=== PATIENT | male | born 1955 | race Two or more races ===

== ENCOUNTER → 2017-09-11 | Outpatient (CLI) | payer MEDICAID ==
[~2017-09-11] VITALS: Ht 175.3 cm; Wt 111.1 kg
[~2017-09-11] MED LIST: ADENOSINE 90 MG/30 ML INJ IV ONE; ADENOSINE 93 MG in GIVE UN-DILUTED 0 ML IV ONE; ALPR0.5T7 PO; ASPI-498 OR; CLOP75TA28 PO; FENO160T8 PO; LISI-646 PO; LOVA20TA4 PO; MET50T GT
[2017-09-11 12:41] LABS: Urine Blood Negative /uL (Negative); Urine Specific Gravity 1.021 (1.001-1.035)
[2017-09-11 12:46] LABS: Basophils # (auto) 0.1 uL; Eosinophils # (auto) 0.4 uL; Hematocrit 43.1 % (41.0-53.0); Hemoglobin 14.4 g/dL (13.5-17.5); Lymphocytes # (auto) 1.9 uL; Lymphocytes % (auto) 18.6 % (10.0-50.0); Mean Corpuscular Hgb Conc. 33.3 g/dL (32.0-36.0); Mean Corpuscular Volume 81.2 fL (80.0-100.0); Monocytes # (auto) 0.6 uL; Monocytes % (auto) 5.9 % (0.0-12.0); Neutrophils % (auto) 70.5 % (37.0-80.0); Nucleated Red Blood Cells % 0.2 %; Platelet Count (auto) 212 10^3/uL (140-450); Red Blood Cells 5.31 10^6/uL (4.5-5.90)
[2017-09-11 12:55] LABS: Free T4 (Free Thyroxine) 1.24 ng/dL (0.89-1.76); Prostate Specific Antigen 1.05 ng/mL (0.0-4.0)
[2017-09-11 13:00] LABS: Albumin 3.4 g/dL (3.4-5.0); BUN/Creatinine Ratio 9.6; Bilirubin, Total 0.6 mg/dL (0.2-1.0); Calcium 9.4 mg/dL (8.5-10.1); Potassium 4.1 mmol/L (3.5-5.1)
== END | disposition home or self-care (01) ==
LOC: Rad HDHVI 08:03
PROVIDERS: ATTEND Internal Medicine Cardiovascular Disease
DX: E78.00 Pure hypercholesterolemia, unspecified (principal); D64.9 Anemia, unspecified; I10 Essential (primary) hypertension; E11.9 Type 2 diabetes mellitus without complications; R94.31 Abnormal electrocardiogram [ECG] [EKG]; E03.9 Hypothyroidism, unspecified; E55.9 Vitamin D deficiency, unspecified; R53.81 Other malaise; R97.20 Elevated prostate specific antigen [PSA]; D51.9 Vitamin B12 deficiency anemia, unspecified; N39.0 Urinary tract infection, site not specified; I21.9 Acute myocardial infarction, unspecified; R07.9 Chest pain, unspecified; E78.5 Hyperlipidemia, unspecified
CPT/HCPCS: 36415; 78452; 80053; 80061; 81003; 82306; 82607; 83036; 84153; 84403; 84439; 84443; 85025; 93005; 96374; 96375; A9500; J0153

== ENCOUNTER → 2018-01-02 | Outpatient (CLI) | payer MEDICAID ==
[~2018-01-02] MED LIST changes: -ADENOSINE 90 MG/30 ML INJ IV ONE; -ADENOSINE 93 MG in GIVE UN-DILUTED 0 ML IV ONE
== END | disposition home or self-care (01) ==
LOC: Rad HDHVI 13:56
PROVIDERS: ATTEND Internal Medicine
DX: I10 Essential (primary) hypertension (principal); I25.10 Atherosclerotic heart disease of native coronary artery without angina pectoris; I49.3 Ventricular premature depolarization; E78.5 Hyperlipidemia, unspecified; E03.9 Hypothyroidism, unspecified; E78.00 Pure hypercholesterolemia, unspecified; E11.9 Type 2 diabetes mellitus without complications; F41.9 Anxiety disorder, unspecified; Z79.899 Other long term (current) drug therapy
CPT/HCPCS: 93306

== ENCOUNTER 2018-03-24 14:23 | Emergency (ER) | payer MEDICAID ==
[~2018-03-24] VITALS: Ht 175.3 cm; Wt 108.9 kg
[2018-03-24 15:10] LABS: Basophils # (auto) 0.1 uL; Hemoglobin 14.4 g/dL (13.5-17.5); Neutrophils # (auto) 7.3 uL; White Blood Cell 11.1 10^3/uL (4.4-10.8)
[2018-03-24 15:12] LABS: Basophils % (auto) 1.2 % (0.0-2.0); Eosinophils # (auto) 0.8 uL; Eosinophils % (auto) 7.2 % (0.0-7.0); Hematocrit 42.6 % (41.0-53.0); Lymphocytes # (auto) 2.3 uL; Lymphocytes % (auto) 20.5 % (10.0-50.0); Mean Corpuscular Hemoglobin 26.9 pg (28.0-32.0); Mean Corpuscular Hgb Conc. 33.8 g/dL (32.0-36.0); Mean Corpuscular Volume 79.4 fL (80.0-100.0); Monocytes # (auto) 0.6 uL; Monocytes % (auto) 5.7 % (0.0-12.0); Neutrophils % (auto) 65.4 % (37.0-80.0); Platelet Count (auto) 197 10^3/uL (140-450); Red Blood Cells 5.36 10^6/uL (4.5-5.90); Red Cell Distribution Width 15.3 % (11.8-14.3)
[2018-03-24 15:26] LABS: INR 0.99 (0.9-1.15); Prothrombin Time 10.6 sec (9.27-12.13)
[2018-03-24 15:41] LABS: Alanine Aminotransferase 38 U/L (16-61); Albumin 3.4 g/dL (3.4-5.0); Alkaline Phosphatase 80 U/L (45-117); Anion Gap 3 (5-15); Aspartate Aminotransferase 16 U/L (15-37); BUN/Creatinine Ratio 10.8; Bilirubin, Total 0.4 mg/dL (0.2-1.0); Blood Urea Nitrogen 10 mg/dL (7-18); Calcium 8.8 mg/dL (8.5-10.1); Carbon Dioxide 26 mmol/L (21-32); Chloride 110 mmol/L (98-107); GFR African American 107 mL/min; GFR Non-African American 88 mL/min; Glucose 83 mg/dL (74-106); Magnesium 2.2 mg/dL (1.6-2.6); Potassium 3.6 mmol/L (3.5-5.1); Sodium 139 mmol/L (136-145); Total Protein 7.3 g/dL (6.4-8.2)
[2018-03-24] MEDS ORDERED: MORPHINE SULF INJ 2 MG/ML SYRINGE 1ML IV ONE (19:00)
[2018-03-24] MEDS ORDERED: ONDANSETRON HCL 4 MG/2 ML VIAL IV ONE (19:00)
[2018-03-24 19:52] VITALS: BP 122/73
[2018-03-24] MEDS ORDERED: MORPHINE SULF INJ 2 MG/ML SYRINGE 1ML IV PRN (21:15)
[2018-03-24] MEDS ORDERED: HYDROcodone-ACET 5/325MG TAB PO PRN (21:15)
[2018-03-24] MEDS ORDERED: ONDANSETRON HCL 4 MG/2 ML VIAL IV PRN (21:15)
[2018-03-24] MEDS ORDERED: NITROGLYCERIN 0.4 MG SL TAB SL PRN (21:15)
[2018-03-24] MEDS ORDERED: ACETAMINOPHEN 325 MG TAB PO PRN (21:15)
[2018-03-24] MEDS ORDERED: TEMAZEPAM 15 MG CAP PO PRN (21:15)
[2018-03-24] MEDS ORDERED: PRAVASTATIN SODIUM 20 MG TAB PO SCH (22:00)
[2018-03-24] MEDS ORDERED: FAMOTIDINE 20 MG TAB PO SCH (22:00)
[2018-03-25] MEDS ORDERED: ASPirin 81 mg TAB PO SCH (10:00)
[2018-03-25] MEDS ORDERED: METOPROLOL SUCCINATE XL 50 MG TAB PO SCH (10:00)
[2018-03-25] MEDS ORDERED: CLOPIDOGREL BISULFATE 75 MG TAB PO SCH (10:00)
[2018-03-25] MEDS ORDERED: ENOXAPARIN SOD 40 MG/0.4 ML SYRINGE SC SCH (10:00)
[2018-03-25] MEDS ORDERED: LISINOPRIL 20 MG TAB PO SCH (10:00)
== END 2018-03-24 21:21 | disposition left against medical advice (07) ==
LOC: ER 14:30
DX: R07.9 Chest pain, unspecified (principal); M25.511 Pain in right shoulder; I25.810 Atherosclerosis of coronary artery bypass graft(s) without angina pectoris; E78.5 Hyperlipidemia, unspecified; I10 Essential (primary) hypertension; I25.2 Old myocardial infarction; Z79.82 Long term (current) use of aspirin
CPT/HCPCS: 36415; 71046; 73030; 80053; 83735; 84484; 85025; 85610; 85730; 93005; 96374; 96375; 99285; J2270; J2405

== ENCOUNTER → 2018-08-27 | Outpatient (CLI) | payer MEDICAID ==
[~2018-08-27] MED LIST changes: +ALB5IS NEB; +ALBUAER3 IN; +ASPI1TAB59 PO; +ATOR1TAB PO; +CHOL20007 OR; +FLU220IH INH; +LURA80TA PO; -MET50T GT; +MET50T PO; +METF-370 PO; +NITR0.4S29 SL; +NYS15TP TOP; +OMEP20TA PO; +SERT-274 PO; +TEMA30CA PO; +TRAM50TA2 PO
[2018-08-27 11:50] VITALS: BP 120/70
[2018-08-27 12:10] VITALS: BP 125/71
--- NOTE | 2018-08-27 12:10 | NUR ---
Pre-Op Discharge Summary: See e-MAR for any medications given for this visit. Pre-op orders received and carried out per MD of EKG, LABS and chest xrays. Patient given a copy of EKG with instructions to go to [facility] out patient for further follow up care.
[2018-08-27 16:10] LABS: BUN/Creatinine Ratio 8.7; Potassium 3.9 mmol/L (3.5-5.1)
[2018-08-27 16:26] LABS: Basophils # (auto) 0.1 uL; Mean Corpuscular Volume 80.2 fL (80.0-100.0); Monocytes # (auto) 0.6 uL; White Blood Cell 11.4 10^3/uL (4.4-10.8)
[2018-08-27 16:28] LABS: Basophils % (auto) 0.9 % (0.0-2.0); Eosinophils # (auto) 0.4 uL; Eosinophils % (auto) 3.6 % (0.0-7.0); Hematocrit 45.4 % (41.0-53.0); Hemoglobin 14.8 g/dL (13.5-17.5); Lymphocytes # (auto) 2.3 uL; Lymphocytes % (auto) 20.1 % (10.0-50.0); Mean Corpuscular Hemoglobin 26.1 pg (28.0-32.0); Mean Corpuscular Hgb Conc. 32.5 g/dL (32.0-36.0); Monocytes % (auto) 5.3 % (0.0-12.0); Neutrophils % (auto) 70.1 % (37.0-80.0); Platelet Count (auto) 202 10^3/uL (140-450); Red Blood Cells 5.66 10^6/uL (4.5-5.90); Red Cell Distribution Width 14.9 % (11.8-14.3)
[2018-08-27 16:33] LABS: INR 1.04 (0.9-1.15); Partial Thromboplastin Time 27.3 sec (23.78-33.04); Prothrombin Time 11.1 sec (9.27-12.13)
== END | disposition home or self-care (01) ==
LOC: Rad HDHVI 10:37
PROVIDERS: ATTEND Internal Medicine Cardiovascular Disease
DX: Z01.818 Encounter for other preprocedural examination (principal); I35.8 Other nonrheumatic aortic valve disorders; D64.9 Anemia, unspecified; R79.1 Abnormal coagulation profile; I10 Essential (primary) hypertension; I20.9 Angina pectoris, unspecified
CPT/HCPCS: 36415; 80048; 85025; 85610; 85730; 93005; 93306; G0463

== ENCOUNTER 2018-08-31 09:24 | Inpatient (IN) | payer MEDICAID | END 2018-09-01 14:28 | disposition home or self-care (01) | LOC: CATH 09:24 → TELE-CENTR 18:11 ==

== ENCOUNTER → 2020-03-26 | Outpatient (CLI) | payer OTHER, MEDICAID ==
[~2020-03-26] MED LIST changes: -ASPI-498 OR; -FENO160T8 PO; -LISI-646 PO; -LOVA20TA4 PO
== END | disposition home or self-care (01) ==
LOC: Rad HDHVI 07:59
PROVIDERS: ATTEND Internal Medicine
DX: I08.2 Rheumatic disorders of both aortic and tricuspid valves (principal); I48.91 Unspecified atrial fibrillation; E11.9 Type 2 diabetes mellitus without complications; E78.5 Hyperlipidemia, unspecified; R06.02 Shortness of breath; R55 Syncope and collapse
CPT/HCPCS: 93306

== ENCOUNTER → 2020-04-07 | Outpatient (CLI) | payer OTHER, MEDICAID ==
[~2020-04-07] VITALS: Ht 175.3 cm; Wt 97.5 kg
[~2020-04-07] MED LIST changes: +ADENOSINE 82 MG in GIVE UN-DILUTED 0 ML IV ONE; +ADENOSINE 90 MG/30 ML INJ IV ONE
== END | disposition home or self-care (01) ==
LOC: Rad HDHVI 07:49
PROVIDERS: ATTEND Internal Medicine
DX: I25.10 Atherosclerotic heart disease of native coronary artery without angina pectoris (principal); I10 Essential (primary) hypertension; I25.2 Old myocardial infarction; E11.9 Type 2 diabetes mellitus without complications; E78.5 Hyperlipidemia, unspecified; R07.89 Other chest pain; R00.2 Palpitations; Z95.5 Presence of coronary angioplasty implant and graft; Z82.49 Family history of ischemic heart disease and other diseases of the circulatory system
CPT/HCPCS: 78452; 93005; 96374; 96375; A9500; J0153

== ENCOUNTER → 2021-09-08 | Outpatient (CLI) | payer MEDICARE, MEDICAID ==
[~2021-09-08] MED LIST changes: -ADENOSINE 82 MG in GIVE UN-DILUTED 0 ML IV ONE; -ADENOSINE 90 MG/30 ML INJ IV ONE; +ATOR-47 PO; -ATOR1TAB PO; -SERT-274 PO; +SERT50TA19 PO
== END | disposition home or self-care (01) ==
LOC: Rad HDHVI 11:05
PROVIDERS: ATTEND Internal Medicine
DX: I35.8 Other nonrheumatic aortic valve disorders (principal); I48.91 Unspecified atrial fibrillation
CPT/HCPCS: 93306

== ENCOUNTER → 2021-09-15 | Outpatient (CLI) | payer MEDICARE, MEDICAID | END | disposition home or self-care (01) | LOC: Rad HDHVI 12:44 | PROVIDERS: ATTEND Internal Medicine | DX: I65.22 Occlusion and stenosis of left carotid artery (principal); I25.10 Atherosclerotic heart disease of native coronary artery without angina pectoris; I10 Essential (primary) hypertension | CPT/HCPCS: 93880 ==

== ENCOUNTER → 2021-09-23 | Outpatient (CLI) | payer MEDICARE, MEDICAID ==
[~2021-09-23] VITALS: Ht 175.3 cm; Wt 99.8 kg
[~2021-09-23] MED LIST changes: +ADENOSINE 84 MG in GIVE UN-DILUTED 0 ML IV ONE; +ADENOSINE 90 MG/30 ML INJ IV ONE
== END | disposition home or self-care (01) ==
LOC: Rad HDHVI 08:00
PROVIDERS: ATTEND Internal Medicine
DX: I25.10 Atherosclerotic heart disease of native coronary artery without angina pectoris (principal); I42.0 Dilated cardiomyopathy; I10 Essential (primary) hypertension
CPT/HCPCS: 78452; 93005; 96374; 96375; A9500; J0153

== ENCOUNTER → 2022-03-07 | Outpatient (CLI) | payer MEDICARE, MEDICAID ==
[~2022-03-07] MED LIST changes: -ADENOSINE 84 MG in GIVE UN-DILUTED 0 ML IV ONE; -ADENOSINE 90 MG/30 ML INJ IV ONE; +APIX5TAB PO; +ASPI1TAB20 PO; +FERR-20 PO; +FLEC100T PO; +GLUC1TES VI; +IBUP200T2 PO; +LIDO5DIS21 TOP; +LISI20TA28 PO; +OMEG100078 PO; +SITA50TA PO; +TAM04C PO
[2022-03-07 10:00] VITALS: BP 128/74
[2022-03-07 10:36] VITALS: BP 125/75
[2022-03-07 17:09] LABS: Basophils # (auto) 0.1 10 ^3/uL (0-0.2); Hematocrit 43.1 % (41.0-53.0); Hemoglobin 13.7 g/dL (13.5-17.5); Lymphocytes # (auto) 1.9 10 ^3/uL (0.4-5.4); Mean Corpuscular Hemoglobin 26.4 pg (28.0-32.0); Monocytes # (auto) 0.7 10 ^3/uL (0-1.3)
[2022-03-07 17:15] LABS: Basophils % (auto) 0.9 % (0.0-2.0); Eosinophils # (auto) 0.4 10 ^3/uL (0-0.8); Eosinophils % (auto) 3.4 % (0.0-7.0); Lymphocytes % (auto) 17.7 % (10.0-50.0); Mean Corpuscular Hgb Conc. 31.8 g/dL (32.0-36.0); Mean Corpuscular Volume 82.9 fL (80.0-100.0); Monocytes % (auto) 5.9 % (0.0-12.0); Neutrophils # (auto) 7.9 10 ^3/uL (1.6-8.6); Neutrophils % (auto) 72.1 % (37.0-80.0); Nucleated Red Blood Cells % 0.2 %; Red Cell Distribution Width 14.5 % (11.8-14.3)
[2022-03-07 17:16] LABS: Potassium 4.4 mmol/L (3.5-5.1)
[2022-03-07 17:19] LABS: BUN/Creatinine Ratio 9.3; Calcium 9.3 mg/dL (8.5-10.1)
[2022-03-07 17:59] LABS: INR 0.98 (0.9-1.15); Partial Thromboplastin Time 30.1 sec (24.6-33.4)
== END | disposition home or self-care (01) ==
LOC: Rad HDHVI 09:49
PROVIDERS: ATTEND Internal Medicine
DX: I25.5 Ischemic cardiomyopathy (principal); I51.7 Cardiomegaly; I42.9 Cardiomyopathy, unspecified; R79.1 Abnormal coagulation profile; I10 Essential (primary) hypertension; Z01.812 Encounter for preprocedural laboratory examination
CPT/HCPCS: 36415; 71046; 80048; 85025; 85610; 85730; 93005; G0463

== ENCOUNTER 2022-03-09 09:12 | Day surgery (SDC) | payer MEDICARE, MEDICAID ==
[2022-03-09] VITALS (10 sets, daily range): BP systolic 104–115; BP diastolic 60–76
[~2022-03-09] VITALS: Ht 175.3 cm; Wt 100.7 kg
[~2022-03-09 09:12] MED LIST changes: -ALB5IS NEB; -ALPR0.5T7 PO; -ASPI1TAB59 PO; -FLU220IH INH; -LURA80TA PO; -SERT50TA19 PO
[2022-03-09] MEDS ORDERED: ANGIOMAX 250 MG VIAL IV ONE (10:24)
[2022-03-09] MEDS ORDERED: HEPARIN SODIUM (PORCINE) 5000 UNITS/ML 1ML VIAL ONE (10:25)
[2022-03-09] MEDS ORDERED: SODIUM CHL 0.9% 50 ML ONE (10:25)
[2022-03-09] MEDS ORDERED: MIDAZOLAM HCL 2MG/2ML 2ml VIAL (1mg/ml) ONE (10:25)
[2022-03-09] MEDS ORDERED: fentaNYL CITRATE 100 MCG/2 ML VL ONE (10:25)
[2022-03-09] MEDS ORDERED: VERAPAMIL 2.5MG/ML INJ 2ML VIAL IV ONE (10:25)
[2022-03-09] MEDS ORDERED: IODIXANOL 320MG/ML 100ML BTL IV ONE (10:28)
[2022-03-09] MEDS ORDERED: LIDOCAINE 2%HCL (LOCAL ANESTH.) INJ 10ml MDV ONE (10:29)
[2022-03-09] MEDS ORDERED: CLOPIDOGREL 300 MG TAB ONE (11:09)
== END 2022-03-09 14:29 | disposition home or self-care (01) ==
LOC: CATH 09:12
PROVIDERS: ATTEND Internal Medicine
DX: I25.10 Atherosclerotic heart disease of native coronary artery without angina pectoris (principal); I10 Essential (primary) hypertension; E78.5 Hyperlipidemia, unspecified; I25.2 Old myocardial infarction; J45.909 Unspecified asthma, uncomplicated; E11.9 Type 2 diabetes mellitus without complications; F41.9 Anxiety disorder, unspecified; F32.A Depression, unspecified; Z79.02 Long term (current) use of antithrombotics/antiplatelets; Z82.49 Family history of ischemic heart disease and other diseases of the circulatory system; Z79.82 Long term (current) use of aspirin; Z87.891 Personal history of nicotine dependence; Z20.822 Contact with and (suspected) exposure to COVID-19
CPT/HCPCS: 93458; C1725; C1769; C1874; C1887; C1894; C9600; J0583; J1644; J2001; J2250; J3010; J7030; Q9967; U0003; 99152; 99153

== ENCOUNTER → 2022-04-19 | Outpatient (CLI) | payer MEDICARE, MEDICAID ==
[2022-04-19 12:30] LABS: Urine Blood Negative /uL (Negative); Urine Specific Gravity 1.012 (1.001-1.035)
[2022-04-19 12:34] LABS: Basophils # (auto) 0.1 10 ^3/uL (0-0.2); Basophils % (auto) 0.9 % (0.0-2.0); Eosinophils # (auto) 0.5 10 ^3/uL (0-0.8); Eosinophils % (auto) 5.5 % (0.0-7.0); Hematocrit 42.9 % (41.0-53.0); Hemoglobin 14.1 g/dL (13.5-17.5); Lymphocytes # (auto) 2.2 10 ^3/uL (0.4-5.4); Lymphocytes % (auto) 22.6 % (10.0-50.0); Mean Corpuscular Hemoglobin 26.8 pg (28.0-32.0); Mean Corpuscular Hgb Conc. 32.8 g/dL (32.0-36.0); Mean Corpuscular Volume 81.9 fL (80.0-100.0); Monocytes # (auto) 0.7 10 ^3/uL (0-1.3); Monocytes % (auto) 6.8 % (0.0-12.0); Neutrophils # (auto) 6.3 10 ^3/uL (1.6-8.6); Neutrophils % (auto) 64.2 % (37.0-80.0); Nucleated Red Blood Cells % 0.1 %; Red Blood Cells 5.24 10^6/uL (4.5-5.90); Red Cell Distribution Width 14.6 % (11.8-14.3); White Blood Cell 9.8 10^3/uL (4.4-10.8)
[2022-04-19 12:41] LABS: Albumin 3.4 g/dL (3.4-5.0); Calcium 9.2 mg/dL (8.5-10.1); Potassium 4.2 mmol/L (3.5-5.1)
[2022-04-19 12:46] LABS: BUN/Creatinine Ratio 12.1; Bilirubin, Total 0.3 mg/dL (0.2-1.0); Total Protein 7.1 g/dL (6.4-8.2)
[2022-04-19 12:56] LABS: Free T4 (Free Thyroxine) 1.18 ng/dL (0.89-1.76); Prostate Specific Antigen 0.78 ng/mL (0.0-4.0)
== END | disposition home or self-care (01) ==
LOC: LAB 10:36
PROVIDERS: ATTEND Internal Medicine
DX: C61 Malignant neoplasm of prostate (principal); I25.10 Atherosclerotic heart disease of native coronary artery without angina pectoris; E55.9 Vitamin D deficiency, unspecified; D51.3 Other dietary vitamin B12 deficiency anemia; D64.9 Anemia, unspecified; E11.9 Type 2 diabetes mellitus without complications; I10 Essential (primary) hypertension; R00.2 Palpitations; R53.1 Weakness; R30.0 Dysuria
CPT/HCPCS: 36415; 80053; 80061; 81003; 82306; 82607; 83036; 84153; 84403; 84439; 84443; 85025

== ENCOUNTER → 2022-04-28 | Outpatient (CLI) | payer MEDICARE, MEDICAID | END | disposition home or self-care (01) | LOC: LAB 10:31 | PROVIDERS: ATTEND Internal Medicine | DX: E11.9 Type 2 diabetes mellitus without complications (principal) | CPT/HCPCS: 82043 ==

== ENCOUNTER → 2022-04-29 | Outpatient (CLI) | payer MEDICARE, MEDICAID | END | disposition home or self-care (01) | LOC: Rad HDHVI 11:02 | PROVIDERS: ATTEND Internal Medicine | DX: I08.1 Rheumatic disorders of both mitral and tricuspid valves (principal); R06.02 Shortness of breath; R42 Dizziness and giddiness | CPT/HCPCS: 93306 ==

== ENCOUNTER → 2022-12-28 | Outpatient (CLI) | payer MEDICARE, MEDICAID ==
[~2022-12-28] VITALS: Ht 175.3 cm; Wt 99.8 kg
[~2022-12-28] MED LIST changes: +ADENOSINE 84 MG in GIVE UN-DILUTED 0 ML IV ONE; +ADENOSINE 90 MG/30 ML INJ IV ONE; -FERR-20 PO; +FERR325T24 PO; -LISI20TA28 PO; +LISI20TA56 PO; +OMEG-20 PO; -OMEG100078 PO; -TAM04C PO; +TAMS-35 PO
== END | disposition home or self-care (01) ==
LOC: Rad HDHVI 09:55
PROVIDERS: ATTEND Internal Medicine Cardiovascular Disease
DX: I25.10 Atherosclerotic heart disease of native coronary artery without angina pectoris (principal); I25.5 Ischemic cardiomyopathy; E78.5 Hyperlipidemia, unspecified; I63.9 Cerebral infarction, unspecified; R07.9 Chest pain, unspecified; R94.31 Abnormal electrocardiogram [ECG] [EKG]; I11.0 Hypertensive heart disease with heart failure; I50.43 Acute on chronic combined systolic (congestive) and diastolic (congestive) heart failure; I25.2 Old myocardial infarction; E11.65 Type 2 diabetes mellitus with hyperglycemia; I48.91 Unspecified atrial fibrillation; Z82.49 Family history of ischemic heart disease and other diseases of the circulatory system; Z79.82 Long term (current) use of aspirin; Z79.84 Long term (current) use of oral hypoglycemic drugs; Z79.899 Other long term (current) drug therapy
CPT/HCPCS: 78452; 93005; 96374; 96375; A9500; J0153

== ENCOUNTER → 2023-03-06 | Outpatient (CLI) | payer MEDICARE, MEDICAID ==
[~2023-03-06] MED LIST changes: -ADENOSINE 84 MG in GIVE UN-DILUTED 0 ML IV ONE; -ADENOSINE 90 MG/30 ML INJ IV ONE; +AMIT100T75 PO; +DIGO0.12 PO; +GEMF-66 PO
[2023-03-06 10:10] VITALS: BP 127/69; PULSE 81; RESP 18; O2SAT 98
[2023-03-06 10:25] VITALS: BP 124/73; PULSE 94; RESP 18; O2SAT 98
== END | disposition home or self-care (01) ==
LOC: Rad HDHVI 09:54
PROVIDERS: ATTEND Internal Medicine Cardiovascular Disease
DX: Z01.818 Encounter for other preprocedural examination (principal); I45.10 Unspecified right bundle-branch block; R94.31 Abnormal electrocardiogram [ECG] [EKG]; I50.43 Acute on chronic combined systolic (congestive) and diastolic (congestive) heart failure; R06.02 Shortness of breath; R60.9 Edema, unspecified
CPT/HCPCS: 71046; 93005; G0463

== ENCOUNTER 2023-03-07 11:17 | Day surgery (SDC) | payer MEDICARE, MEDICAID ==
[2023-03-06 11:31] LABS: Basophils # (auto) 0.1 10 ^3/uL (0-0.2); Basophils % (auto) 0.9 % (0.0-2.0); Eosinophils # (auto) 0.3 10 ^3/uL (0-0.8); Eosinophils % (auto) 2.8 % (0.0-7.0); Hematocrit 43.5 % (41.0-53.0); Hemoglobin 14.3 g/dL (13.5-17.5); Lymphocytes # (auto) 1.6 10 ^3/uL (0.4-5.4); Lymphocytes % (auto) 17.9 % (10.0-50.0); Mean Corpuscular Hemoglobin 27.2 pg (28.0-32.0); Mean Corpuscular Hgb Conc. 32.8 g/dL (32.0-36.0); Mean Corpuscular Volume 82.8 fL (80.0-100.0); Monocytes # (auto) 0.9 10 ^3/uL (0-1.3); Monocytes % (auto) 9.5 % (0.0-12.0); Neutrophils # (auto) 6.2 10 ^3/uL (1.6-8.6); Neutrophils % (auto) 68.9 % (37.0-80.0); Nucleated Red Blood Cells % 0.1 %; Red Blood Cells 5.25 10^6/uL (4.5-5.90); Red Cell Distribution Width 14.7 % (11.8-14.3)
[2023-03-06 11:48] LABS: INR 1.08 (0.9-1.15); Partial Thromboplastin Time 26.8 SEC (24.5-34.5); Prothrombin Time 11.3 sec (9.3-11.8)
[2023-03-06 12:26] LABS: Calcium 9.6 mg/dL (8.5-10.1); Potassium 4.2 mmol/L (3.5-5.1)
[2023-03-06 12:28] LABS: BUN/Creatinine Ratio 8.9 (10.0-20.0)
[~2023-03-07] VITALS: Ht 175.3 cm; Wt 98.9 kg
[~2023-03-07 11:17] MED LIST changes: -ASPI1TAB20 PO; -FERR325T24 PO; -FLEC100T PO; -LISI20TA56 PO
[2023-03-07] MEDS ORDERED: VANCOMYCIN 1GM/250ML 250 ML IV ONE (12:00)
[2023-03-07] MEDS ORDERED: MIDAZOLAM HCL 2MG/2ML 2ml VIAL (1mg/ml) ONE (12:34)
[2023-03-07] MEDS ORDERED: VANCOMYCIN HCL 1000 MG VL ONE (12:34)
[2023-03-07] MEDS ORDERED: LIDOCAINE 2%HCL (LOCAL ANESTH.) INJ 20ML MDV ONE ×2 (12:34→12:47)
[2023-03-07] MEDS ORDERED: fentaNYL CITRATE 100 MCG/2 ML VL ONE (12:34)
[2023-03-07] MEDS ORDERED: IODIXANOL 320MG/ML 100ML BTL IV ONE (12:36)
[2023-03-07 14:28] VITALS: BP 128/80; PULSE 79; RESP 12; O2SAT 98
[2023-03-07 14:44] VITALS: BP 131/80; PULSE 73; RESP 17; O2SAT 96
[2023-03-07 14:59] VITALS: BP 129/77; PULSE 74; RESP 18; O2SAT 98
[2023-03-07 15:14] VITALS: BP 136/79; PULSE 75; RESP 12; O2SAT 95
[2023-03-07 15:45] VITALS: BP 138/78; PULSE 81; RESP 16
[2023-03-07] MEDS ORDERED: FUROSEMIDE 40 MG/4 ML VIAL IV ONE (16:15)
[2023-03-07] MEDS ORDERED: POTASSIUM CHL 20 Meq TABLET PO ONE (16:15)
[2023-03-07 16:29] VITALS: BP 128/85; PULSE 85; RESP 16; O2SAT 99
== END 2023-03-07 17:00 | disposition home or self-care (01) ==
LOC: CATH 11:17
PROVIDERS: ATTEND Internal Medicine Cardiovascular Disease
DX: I11.0 Hypertensive heart disease with heart failure (principal); I50.22 Chronic systolic (congestive) heart failure; I25.5 Ischemic cardiomyopathy; I42.0 Dilated cardiomyopathy; R06.02 Shortness of breath; R07.89 Other chest pain; I49.5 Sick sinus syndrome; I25.2 Old myocardial infarction; E78.5 Hyperlipidemia, unspecified; E11.9 Type 2 diabetes mellitus without complications; E66.9 Obesity, unspecified; R42 Dizziness and giddiness
CPT/HCPCS: 33225; 33249; 71045; 93005; C1730; C1769; C1882; C1887; C1895; C1898; C1900; J2250; J3010; J3370; 36415; 80048; 85025; 85610; 85730; 99152; 99153; Q9967

== ENCOUNTER → 2023-03-08 | Outpatient (CLI) | payer MEDICARE, MEDICAID ==
[~2023-03-08] MED LIST changes: +ASPI1TAB20 PO; +FERR325T24 PO; +FLEC100T PO; +LISI20TA56 PO
== END | disposition home or self-care (01) ==
LOC: Rad HDHVI 09:40
PROVIDERS: ATTEND Internal Medicine Cardiovascular Disease
DX: Z48.89 Encounter for other specified surgical aftercare (principal); Z95.0 Presence of cardiac pacemaker
CPT/HCPCS: 71046

== ENCOUNTER → 2024-04-11 | Outpatient (CLI) | payer MEDICARE, MEDICAID ==
[~2024-04-11] MED LIST changes: -ASPI1TAB20 PO; -FERR325T24 PO; -FLEC100T PO; -LISI20TA56 PO; -NYS15TP TOP; +NYST-23 TOP
== END | disposition home or self-care (01) ==
LOC: Rad HDHVI 15:16
PROVIDERS: ATTEND Internal Medicine Cardiovascular Disease
DX: I11.0 Hypertensive heart disease with heart failure (principal); I50.23 Acute on chronic systolic (congestive) heart failure
CPT/HCPCS: 93306

== ENCOUNTER → 2024-04-15 | Outpatient (CLI) | payer MEDICARE, MEDICAID ==
[~2024-04-15] VITALS: Ht 175.3 cm; Wt 85.7 kg
[~2024-04-15] MED LIST changes: +ADENOSINE 72 MG in GIVE UN-DILUTED 0 ML IV ONE; +ADENOSINE 90 MG/30 ML INJ IV ONE
== END | disposition home or self-care (01) ==
LOC: Rad HDHVI 07:50
PROVIDERS: ATTEND Internal Medicine Cardiovascular Disease
DX: I11.0 Hypertensive heart disease with heart failure (principal); I50.23 Acute on chronic systolic (congestive) heart failure; I42.7 Cardiomyopathy due to drug and external agent; E78.00 Pure hypercholesterolemia, unspecified; E11.21 Type 2 diabetes mellitus with diabetic nephropathy; I25.2 Old myocardial infarction; Z95.0 Presence of cardiac pacemaker; Z82.49 Family history of ischemic heart disease and other diseases of the circulatory system
CPT/HCPCS: 78452; 93005; 96374; A9500; J0153; 96375

== ENCOUNTER → 2024-05-13 | Outpatient (CLI) | payer MEDICARE, MEDICAID ==
[~2024-05-13] MED LIST changes: -ADENOSINE 72 MG in GIVE UN-DILUTED 0 ML IV ONE; -ADENOSINE 90 MG/30 ML INJ IV ONE
== END | disposition home or self-care (01) ==
LOC: Rad HDHVI 11:57
PROVIDERS: ATTEND Internal Medicine Cardiovascular Disease
DX: M79.661 Pain in right lower leg (principal); M79.662 Pain in left lower leg
CPT/HCPCS: 93925

== ENCOUNTER 2024-11-12 21:05 | Inpatient (IN) | payer MEDICARE, MEDICAID ==
[~2024-11-12] VITALS: Ht 175.3 cm; Wt 94.5 kg
[2024-11-12 22:23] VITALS: PULSE 81; RESP 12; O2SAT 97
[2024-11-12 22:49] LABS: Basophils # (auto) 0.2 10 ^3/uL (0-0.2); Eosinophils # (auto) 0.6 10 ^3/uL (0-0.8); Hematocrit 44.6 % (41.0-53.0); Hemoglobin 15.2 g/dL (13.5-17.5); Lymphocytes # (auto) 2.4 10 ^3/uL (0.4-5.4); Mean Corpuscular Hemoglobin 28.2 pg (28.0-32.0); Mean Corpuscular Volume 82.8 fL (80.0-100.0); Monocytes # (auto) 1.2 10 ^3/uL (0-1.3); Monocytes % (auto) 7.9 % (0.0-12.0); Neutrophils # (auto) 10.6 10 ^3/uL (1.6-8.6); Neutrophils % (auto) 71.1 % (37.0-80.0); Nucleated Red Blood Cells % 0.1 %; Platelet Count (auto) 211 10^3/uL (140-450); Red Blood Cells 5.39 10^6/uL (4.5-5.90); Red Cell Distribution Width 14.5 % (11.8-14.3)
[2024-11-12 22:51] LABS: Chloride 106 mmol/L (98-107); Potassium 3.9 mmol/L (3.5-5.1); Sodium 138 mmol/L (136-145)
[2024-11-12 22:52] LABS: Anion Gap 5 (5-15); Carbon Dioxide 27 mmol/L (20-31)
[2024-11-12 22:53] LABS: Calcium 10.2 mg/dL (8.7-10.4)
[2024-11-12 22:58] LABS: BUN/Creatinine Ratio 8.9 (10.0-20.0)
--- NOTE | 2024-11-12 22:59 | ED.PDOC ---
History of Present Illness HPI Comments 69-year-old male CHER presents with a chief complaint of syncope. Patient states that he was working in the garage all day and had a syncopal episode. Denies hitting his head. Patient states that he fell on his chest and abdomen. Patient also states that he had already taken his sleeping medication, Temazepam, prior to his fall. BGL: 131. Patient does take blood thinners. patient also states that he has had diarrhea prior to the fall and had an episode of vomiting after the fall. Chief Complaint: Syncope Time Seen by MD: 22:22 Primary Care Provider: ETELVINA Reviewed Notes: Medications, Allergies Allergies: Coded Allergies: NO KNOWN ALLERGIES (Unverified , 03/06/23) Home Meds Reported Medications Digoxin (Digoxin) 125 Mcg Tab, 125 MCG PO DAILY, TAB 03/06/23 Amitriptyline HCl (Amitriptyline Hydrochlori) 100 Mg Tab, 100 MG PO DAILY, TAB 03/06/23 Gemfibrozil (Gemfibrozil) 600 Mg Tab, 600 MG PO DAILY for HIGH CHOLESTEROL, MG 03/06/23 Apixaban Base (ELIQUIS) 5 Mg Tab, 5 MG PO BID for S/P CARDIAC STENTS, TAB 03/07/22 Lidocaine (LIDODERM 5% TOPICAL PATCH) 1 Patch Ph, 1 PATCH TOP DAILY, #30 PATCH 1 Refill 03/07/22 Tamsulosin Hcl (Flomax) 0.4 Mg Cap, 0.4 MG PO DAILY for BPH, CAP 03/07/22 Sitagliptin Phosphate (Januvia) 50 Mg Tab, 2 TAB PO DAILY, #30 TAB 5 Refills 03/07/22 Ibuprofen (Ibuprofen) 200 Mg Tab, 200 MG PO Q4HPRN PRN for PAIN, TAB 03/07/22 [place]-3 Fatty Acids (FISH OIL) 1,000 Mg Cap, 4000 MG PO DAILY for SUPPLEMENT, CAP 03/07/22 Glucose Blood (Fora Gd50 Blood Glucose T) 1 Rachel Rachel, 1 RACHEL BID for BLOOD GLUCOSE, MISC 03/07/22 Atorvastatin Calcium (ATORVASTATIN CALCIUM) 80 Mg Tab, 1 TAB PO DAILY for HYPERLIPIDEMIA, #30 TAB 5 Refills 08/27/18 Metformin Hydrochloride (Metformin Hcl) 500 Mg Tab, 1000 MG PO IBID for 30 Days, MG 08/27/18 Nitroglycerin (Nitrostat) 0.4 Mg Sub, 0.4 MG SL PRN 08/27/18 Nystatin (Nystatin) 100,000 Unit/Gm Cre, TOP BID 08/27/18 Omeprazole (Gnp Omeprazole) 20 Mg Tab, 40 MG PO DAILY, TAB 08/27/18 Temazepam (Temazepam) 30 Mg Cap, 30 MG PO QHSP, CAP 08/27/18 Tramadol Hcl (Tramadol Hcl) 50 Mg Tab, 50 MG PO Q6HP PRN for MODERATE PAIN, MG 08/27/18 Albuterol Sulfate (VENTOLIN MDI) 90 Mcg Ih, 180 MCG IN Q4HP for 30 Days, MCG 08/27/18 Cholecalciferol (VITAMIN D3) 2,000 Unit Tab, 5000 UNIT OR DAILY, TAB 08/27/18 Metoprolol Tartrate (LOPRESSOR TABLET) 50 Mg Tb, 75 MG PO DAILY 01/01/14 Clopidogrel Bisulfate (Plavix) 75 Mg Tab, 75 MG PO DAILY, TAB 01/01/14 Information Source: Patient Mode of Arrival: EMS Severity: Moderate Timing: Hours Duration: Since onset 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, 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 Past Medical History PAST MEDICAL HISTORY: CAD, High Lipids, HTN, [place] Surgical History: PTCA Family History Family History: Unknown Social History Smoker: Non-Smoker Alcohol: Denies ETOH Use Drugs: Denies Drug Use Lives In: Home Constitutional: denies: chills, diaphoresis, fatigue, fever, malaise, sweats, weakness, others EENTM: denies: blurred vision, double vision, ear bleeding, ear discharge, ear drainage, ear pain, ear ringing, eye pain, eye redness, hearing loss, mouth pain, mouth swelling, nasal discharge, nose bleeding, nose congestion, nose pain, photophobia, tearing, throat pain, throat swelling, voice changes, others Respiratory: denies: cough, hemoptysis, orthopnea, SOB at rest, shortness of breath, SOB with excertion, stridor, wheezing, others Cardiovascular: reports: syncope; denies: chest pain, dizzy spells, diaphoresis, Dyspnea on exertion, edema, irregular heart beat, left arm pain, lightheadedness, palpitations, PND, others Gastrointestinal: denies: abdomen distended, abdominal pain, blood streaked bowels, constipated, diarrhea, dysphagia, difficulty swallowing, hematemesis, melena, nausea, poor appetite, poor fluid intake, rectal bleeding, rectal pain, vomiting, others Genitourinary: denies: burning, dysuria, flank pain, frequency, hematuria, incontinence, penile discharge, penile sore, pain, testicle pain, testicle swelling, urgency, others Neurological: denies: dizziness, fainting, headache, left sided numbness, left sided weakness, numbness, paresthesia, pre-existing deficit, right sided numbness, right sided weakness, seizure, speech problems, tingling, tremors, weakness, others Musculoskeletal: denies: back pain, gout, joint pain, joint swelling, muscle pain, muscle stiffness, neck pain, others Integumetry: denies: bruises, change in color, change in hair/nails, dryness, laceration, lesions, lumps, rash, wounds, others Allergic/Immunocompromised: denies: Difficulty Healing, Frequent Infections, Hives, Itching, others Hematologic/Lymphatic: denies: anemia, blood clots, easy bleeding, easy bruising, swollen glands, others Endocrine: denies: excessive hunger, excessive sweating, excessive thirst, excessive urination, flushing, intolerance to cold, intolerance to heat, unexplained weight gain, unexplained weight loss, others Psychiatric: denies: anxiety, bipolar disorder, depression, hopeless, panic disorder, schizophrenia, sleepless, suicidal, others All Other Systems: Reviewed and Negative Physical Exam General Appearance: No Apparent Distress, Normal HEENT: Normal ENT Inspection, Pharynx Normal, TMs Normal Neck: Full Range of Motion, Non-Tender, Normal, Normal Inspection Respiratory: Chest Non-Tender, Lungs Clear, No Accessory Muscle Use, No Respiratory Distress, Normal Breath Sounds Cardiovascular: No Edema, No JVD, No Murmur, No Gallop, Normal Peripheral Pulses, Regular Rate/Rhythm Breast Exam: Deferred Gastrointestinal: No Organomegaly, Non Tender, No Pulsatile Mass, Normal Bowel Sounds, Soft Genitalia: Deferred Pelvic: Deferred Rectal: Deferred Extremities: No calf tenderness, Normal capillary refill, Normal inspection, Normal range of motion, Non-tender, No pedal edema Musculoskeletal : Apperance: Normal Neurologic: Alert, 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 Was a procedure done?: No Differential Dx Considerations may include: ACS, CVA, electrolyte abnormality, viral syndrome, cardiac arrhythmia X-Ray, Labs, Meds, VS Vital Signs Date Time Temp Pulse Resp B/P (MAP) Pulse Ox O2 Delivery O2 Flow Rate FiO2 11/12/24 22:23 81 12 97 Room Air* 0 21 11/12/24 22:23 98.1 81 12 99/51 (67) 97 98.1 11/12/24 21:19 97.9 91 18 117/59 (78) 98 97.9 11/12/24 21:11 84 Lab Test 11/12/24 23:19 11/12/24 22:32 Range/Units Troponin I High Sensitivity Pending 3 L </=54 ng/L White Blood Count 15.0 H 4.4-10.8 10^3/uL Red Blood Count 5.39 4.5-5.90 10^6/uL Hemoglobin 15.2 13.5-17.5 g/dL Hematocrit 44.6 41.0-53.0 % Mean Corpuscular Volume 82.8 80.0-100.0 fL Mean Corpuscular Hemoglobin 28.2 28.0-32.0 pg Mean Corpuscular Hemoglobin Concent 34.0 32.0-36.0 g/dL Red Cell Distribution Width 14.5 H 11.8-14.3 % Platelet Count 211 140-450 10^3/uL Mean Platelet Volume 10.3 6.9-10.8 fL Neutrophils (%) (Auto) 71.1 37.0-80.0 % Lymphocytes (%) (Auto) 16.0 10.0-50.0 % Monocytes (%) (Auto) 7.9 0.0-12.0 % Eosinophils (%) (Auto) 4.0 0.0-7.0 % Basophils (%) (Auto) 1.0 0.0-2.0 % Neutrophils # (Auto) 10.6 H 1.6-8.6 10 ^3/uL Lymphocytes # (Auto) 2.4 0.4-5.4 10 ^3/uL Monocytes # (Auto) 1.2 0-1.3 10 ^3/uL Eosinophils # (Auto) 0.6 0-0.8 10 ^3/uL Basophils # (Auto) 0.2 0-0.2 10 ^3/uL Nucleated Red Blood Cells 0.1 % Sodium Level 138 136-145 mmol/L Potassium Level 3.9 3.5-5.1 mmol/L Chloride Level 106 98-107 mmol/L Carbon Dioxide Level 27 20-31 mmol/L Anion Gap 5 5-15 Blood Urea Nitrogen 8 L 9-23 mg/dL Creatinine 0.90 0.700-1.30 mg/dL Glomerular Filtration Rate Calc 94 >90 mL/min BUN/Creatinine Ratio 8.9 L 10.0-20.0 Serum Glucose 130 H 74-106 mg/dL Calcium Level 10.2 8.7-10.4 mg/dL Time of 1ST Reevaluation: 22:52 Reevaluation 1ST: Unchanged Patient Education/Counseling: Diagnosis, Treatment Family Education/Counseling: No Family Present Departure 1 Departure Time of Disposition: 23:27 (Patient presented with syncope today and should be admitted. Data: 1. I ordered and reviewed the result of at least 3 labs including a CBC, BMP, and troponin. 2. I independently interpreted the following tests: EKG which shows a sinus arrhythmia and a chest x-ray which shows benign chest and a CT head which shows benign brain _.Risk:This patient has a high risk of morbidity due to further diagnostic testing or treatment and may suffer from an acute cardiac, neurologic, or infectious disorder. Rationale: Patient should be admitted to the hospital for further management.) Impression: Primary Impression: Syncope and collapse Additional Impression: Generalized weakness Disposition: ADMITTED INPATIENT Admit to: Med Surg Condition: Serious Critical Care Note Critical Care Time?: Yes Critical care comment: Syncope and collapse Authorized and Performed by: Emily Han MD Total critical care time: Approximately 39 minutes Due to a high probability of clinically significant, life threatening deterioration, the patient required my highest level of preparedness to intervene emergently and I personally spent this critical care time directly and personally managing the patient. This critical care time included obtaining a history; examining the patient; pulse oximetry; ordering and review of studies; arranging urgent treatment with development of a management plan; evaluation of patient's response to treatment; frequent reassessment; and, discussions with other providers. This critical care time was performed to assess and manage the high probability of imminent, life-threatening deterioration that could result in multi-organ failure. It was exclusive of separately billable procedures and treating other patients and teaching time. Please see my other sections and the rest of the note for further information on patient assessment and treatment. Stability Stability form required: No Heart Score Heart Score: Heart Score Response (Comments) Value History N/A 0 EKG N/A 0 Age N/A 0 Risk Factors N/A 0 Troponin N/A 0 Total 0 I personally scribed for EMILY HAN MD ([email or web address]) on 11/12/24 at 22:59. Electronically submitted by Osmany Barraza ([email or web address]). EMILY HAN MD Nov 12, 2024 22:59
--- NOTE | 2024-11-12 23:05 | DVH ---
CHEST RADIOGRAPH Indication: syncope Technique: Single frontal view of the chest was obtained COMPARISON: XY CHEST PORTABLE on DOS: 03/07/23 FINDINGS: Lines and Tubes: Left anterior chest wall cardiac pacing device. Lungs: Clear Pleura: No effusion. No pneumothorax. Cardiomediastinal contours: Unremarkable Bones: Unremarkable IMPRESSION: 1. No acute disease.
[2024-11-12 23:13] LABS: Blood Urea Nitrogen 8 mg/dL (9-23); Glucose 130 mg/dL (74-106)
--- NOTE | 2024-11-12 23:15 | DVH ---
EXAM: CT HEAD WITHOUT CONTRAST INDICATION: syncope TECHNIQUE: CT of the head without intravenous contrast. Radiation Dose : 1. Head: CT Dose: CTDI volume is 64.94 mGy. Dose-length product is 1040.73 mGy*cm The dose indicators for CT are the volume Computed Tomography (CT) Dose Index (CTDIvol) and the Dose Length Product (DLP), and are measured in units of mGy and mGy-cm, respectively. These indicators are not patient dose, but values generated from the CT scanner acquisition factors. The report includes radiation exposure data for exposures received during this examination. COMPARISON: None FINDINGS: There is no evidence of acute intracranial hemorrhage, extra-axial collection, mass effect, midline s hift, herniation or hydrocephalus. The ventricles, sulci and cisterns are age appropriate. The lopez-white differentiation is intact. Patchy periventricular and subcortical white matter hypoattenuation is nonspecific but may be related to small vessel ischemic disease. The visualized paranasal sinuses and mastoid air cells are clear. The surrounding soft tissues and osseous structures are unremarkable. IMPRESSION: 1. No acute intracranial abnormality. 2. Chronic sequelae of microvascular disease. Radiation optimization: All CT scans at this facility use at least one of these dose optimization jake hniques: automated exposure control mA and/or kV adjustment per patient size (includes targeted exam s where dose is matched to clinical indication) or iterative reconstruction.
[2024-11-12] MEDS ORDERED: NITROGLYCERIN 0.4 MG SL TAB SL PRN (23:45)
[2024-11-12] MEDS ORDERED: DOCUSATE SOD 100 MG CAP PO PRN (23:45)
[2024-11-12] MEDS ORDERED: MORPHINE SULFATE INJ 2 MG/ml SYRG IV PRN (23:45)
[2024-11-12] MEDS ORDERED: ACETAMINOPHEN 325 MG TAB PO PRN (23:45)
--- NOTE | 2024-11-12 23:45 | DVHHPRES ---
History of Present Illness Resident Creating Document: SYLVIA ALLEN History of Present Illness Leonidas Pino SR a 69-year-old male patient who presents to ED with chief complaint of denies generalized weakness, lightheadedness, diaphoresis, nausea and mechanical fall with no loss of consciousness with right elbow and chest trauma which happened today in the a.m.. Patient reports before episode started he was smoking cigars and he had low food and water intake today. 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 Patient also reports chills proximally two weeks ago. Denies head or cervical trauma, fever, palpitation, syncope, chest pain, dyspnea, vomiting, diarrhea, bleeding, recent travel, sick contacts and motor or sensory deficits. Past medical history: Hypertension, dyslipidemia, diabetes, CHF status post EMPLOYMENT OFFICE CLERK D (he has not been admitted for CHF exacerbation since placement of cardiac device), coronary artery disease with NE in 2003, required a total of three PCIs with total of 5 TOMI placed, non affiliated arrhythmia (probable atrial fibrillation) on apixaban, required ablation in 2022, COPD, asthma, obstructive sleep apnea indicating CPAP but the patient is nonadherent to treatment, bulging lumbar disc symptomatic by chronic back pain and peripheral neuropathy, GERD, hepatic steatosis BPH. Surgical history: Multiple PCIs (2003 with 1 TOMI, 2007 with 2 TOMI and 2014 with 2 TOMI), 02/2023 EMPLOYMENT OFFICE CLERK-D, Ablation 2022, carpal tunnel surgery Family history: Mother and father had heart disease Social history: Lives in [place] with (next of kin) and offsprings. He currently smokes six cigars a day, quit cigarette smoking in 2005 ( pack-year history of smoking). Ex ethanol abuse (on glass of Bacardi every done night) quit also in 2005. He occasionally drinks alcohol now. And occasionally smokes marijuana. Denies any other drug abuse Allergies: Denies Home medication: Plavix, aspirin, Eliquis, omeprazole, atorvastatin, gemfibrozil, temazepam. He does not take any diuretics. Patient seen and examined at bedside. He is complaining of chest pain which is exacerbated by respiration and superficial palpation. Ordered IV morphine Past Medical History Per HPI Past Surgical History Per HPI Family History Per HPI Past Social History Per HPI Review of Systems Review of Systems Per HPI Allergies: Coded Allergies: NO KNOWN ALLERGIES (Unverified , 03/06/23) Medications Current Medications Medications Dose Ordered Sig/Carl Route Start Time Stop Time Status Last Admin Dose Admin Docusate Sodium 100 mg BIDPRN PRN PO 11/12/24 23:45 UNV Acetaminophen 650 mg Q6HP PRN PO 11/12/24 23:45 UNV Ondansetron HCl 4 mg Q4HP PRN IV 11/12/24 23:45 UNV Morphine Sulfate 2 mg Q4HPRN PRN IV 11/12/24 23:45 UNV Enoxaparin Sodium 40 mg DAILY SC 11/13/24 10:00 UNV Nitroglycerin 0.4 mg Q5MINP PRN SL 11/12/24 23:45 UNV Morphine Sulfate 2 mg Q30M PRN IV 11/12/24 23:45 UNV Exam Vital Signs Vital Signs Date Time Temp Pulse Resp B/P (MAP) Pulse Ox O2 Delivery O2 Flow Rate FiO2 11/12/24 22:23 81 12 97 Room Air* 0 21 11/12/24 22:23 98.1 99/51 (67) 98.1 Exam Patient lying in bed, in no acute distress General: Lucid, afebrile, mucosae are dry Cardiovascular: Normal S1 and S2. No murmurs, gallops or rubs. Presents tenderness on superficial palpation of anterior chest wall Respiratory: Normal ventilation mechanics. Clear lung sounds on auscultation Abdomen: Soft, nontender, no organomegaly, normal bowel sounds MSK/skin: Mobilizes 4 limbs. Skin is dry and warm Neurological: Oriented in 3 spheres. No motor no sensitive deficits. Pupils are isocoric and reactive Labs/Xrays Labs Test 11/12/24 23:19 11/12/24 22:32 Range/Units White Blood Count 15.0 H 4.4-10.8 10^3/uL Red Blood Count 5.39 4.5-5.90 10^6/uL Hemoglobin 15.2 13.5-17.5 g/dL Hematocrit 44.6 41.0-53.0 % Mean Corpuscular Volume 82.8 80.0-100.0 fL Mean Corpuscular Hemoglobin 28.2 28.0-32.0 pg Mean Corpuscular Hemoglobin Concent 34.0 32.0-36.0 g/dL Red Cell Distribution Width 14.5 H 11.8-14.3 % Platelet Count 211 140-450 10^3/uL Mean Platelet Volume 10.3 6.9-10.8 fL Neutrophils (%) (Auto) 71.1 37.0-80.0 % Lymphocytes (%) (Auto) 16.0 10.0-50.0 % Monocytes (%) (Auto) 7.9 0.0-12.0 % Eosinophils (%) (Auto) 4.0 0.0-7.0 % Basophils (%) (Auto) 1.0 0.0-2.0 % Neutrophils # (Auto) 10.6 H 1.6-8.6 10 ^3/uL Lymphocytes # (Auto) 2.4 0.4-5.4 10 ^3/uL Monocytes # (Auto) 1.2 0-1.3 10 ^3/uL Eosinophils # (Auto) 0.6 0-0.8 10 ^3/uL Basophils # (Auto) 0.2 0-0.2 10 ^3/uL Nucleated Red Blood Cells 0.1 % Sodium Level 138 136-145 mmol/L Potassium Level 3.9 3.5-5.1 mmol/L Chloride Level 106 98-107 mmol/L Carbon Dioxide Level 27 20-31 mmol/L Anion Gap 5 5-15 Blood Urea Nitrogen 8 L 9-23 mg/dL Creatinine 0.90 0.700-1.30 mg/dL Glomerular Filtration Rate Calc 94 >90 mL/min BUN/Creatinine Ratio 8.9 L 10.0-20.0 Serum Glucose 130 H 74-106 mg/dL Calcium Level 10.2 8.7-10.4 mg/dL Assessment/Plan Assessment/Plan Assessment: Probable orthostatic presyncope Leukocytosis likely reactive due to mechanical fall Rule out cardiogenic presyncope CHF status post 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 Ordered echocardiogram Evaluate requirement for cardiological consultation (Dr. 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 Ordered nicotine patches Continue home medication Ordered orthostatic vital signs. Avoid antihypertensive medication and diuretics, patient seems hypovolemic. Patient is on triple therapy (aspirin, Plavix and Eliquis) continue aspirin and Plavix, switched to therapeutic enoxaparin for eventual need of intervention during admission. Goals of care discussed with patient for over 18 minutes: Full code status Discussed plan with Dr. Tom, patient and nurses: We will workup presyncope to rule out cardiogenic cause, probably orthostatic due to dry mucous membranes and medication. Ordered device interrogation to rule out ventricular arrhythmias Plan discussed with: Patient, Other (Nurses) My Orders Orders - SYLVIA ALLEN RESIDENT Procedure Category Date Status Time Admit ADMIT 11/12/24 Transmitted 23:36 Code Status CODE 11/12/24 Transmitted 23:36 Vital Signs [facility] 11/12/24 In Process 23:36 Review Orders With [facility] 11/12/24 In Process Adm.Md 23:36 Npo (Nothing By DIET 11/13/24 Transmitted Mouth) Diet Breakfast Docusate Sodium PHA 11/12/24 Logged Capsule (Colace 23:45 Acetaminophen Tablet PHA 11/12/24 Logged (Tylenol Tablet) 23:45 Notify Of Changes [facility] 11/12/24 In Process From Base 23:36 Advance Directive [facility] 11/12/24 In Process 23:36 Echo 2d Mode Cardiac US 11/12/24 Logged DOP 23:36 Patient Condition ORDERS 11/12/24 Transmitted 23:36 Allergies [facility] 11/12/24 In Process 23:36 Ondansetron Hcl PHA 11/12/24 Logged (Zofran) 23:45 Morphine Sulfate PHA 11/12/24 Logged Injection 23:45 Enoxaparin Sodium PHA 11/13/24 Logged (Lovenox) 10:00 Nitroglycerin PHA 11/12/24 Logged Sublingual (Ntrostat 23:45 Morphine Sulfate PHA 11/12/24 Logged Injection 23:45 Oxygen By Nasal RT 11/12/24 Transmitted Cannula 23:36 Stat Ekg For Chest [facility] 11/12/24 In Process Pain 23:36 Notify Of Changes [facility] 11/12/24 In Process From Base 23:36 Underwater Roboticist For [facility] 11/12/24 In Process 24 Hours 23:36 Emergency Dysrhythmia [facility] 11/12/24 In Process Protocol 23:36 Rhythm Strips Once [facility] 11/12/24 In Process Every Shift 23:36 Vitamin D, 25-Hydroxy LAB 11/12/24 Logged 23:36 Vitamin B12 LAB 11/12/24 Logged 23:36 Thyroid Stimulating LAB 11/12/24 Logged Hormone 23:36 Urinalysis LAB 11/12/24 Logged 23:36 Phosphorus LAB 11/12/24 Logged 23:36 Magnesium LAB 11/12/24 Logged 23:36 Lipid Panel LAB 11/12/24 Logged 23:36 Hemoglobin A1c LAB 11/12/24 Logged 23:36 Drug Screen LAB 11/12/24 Logged 23:36 Hepatic Panel LAB 11/12/24 In Process 23:36 Complete Blood Count LAB 11/13/24 Verified 04:00 Basic Metabolic Panel LAB 11/13/24 Verified 04:00 Lactic Acid W/ Reflex LAB 11/12/24 Logged Order 23:40 PTPTT LAB 11/12/24 Logged 23:40 Date of Service: Nov 12, 2024 Billing Provider: MARY TOM MD Common Visit Codes: [id number] INP/OBS CARE (HIGH) SYLVIA ALLEN RESIDENT Nov 12, 2024 23:45
[2024-11-13 00:07] LABS: INR 1.07 (0.9-1.15); Partial Thromboplastin Time 26.5 SEC (24.5-34.5); Prothrombin Time 11.3 sec (9.3-11.8)
[2024-11-13] MEDS ORDERED: DEXTROSE (50%) 50ML SYRG IV PRN (01:30)
[2024-11-13 01:41] LABS: Lactic Acid w/Reflex 2.9 mmol/L (0.4-2.0)
[2024-11-13] MEDS: SODIUM CHLORIDE 0.9% 500 ML IV ONE (02:02)
[2024-11-13] MEDS: MORPHINE SULFATE INJ 2 MG/ml SYRG IV PRN (02:27)
[2024-11-13 02:32] LABS: Albumin 4.1 g/dL (3.2-4.8); Bilirubin, Total 0.6 mg/dL (0.2-1.0); Total Protein 6.3 g/dL (5.7-8.2)
[2024-11-13 02:33] LABS: Bilirubin, Direct 0.2 mg/dL (<0.3); Phosphorus 3.7 mg/dL (2.4-5.1)
[2024-11-13 03:01] LABS: Magnesium 1.6 mg/dL (1.6-2.6)
[2024-11-13 04:27] LABS: Urine Bacteria None Seen /hpf (None Seen)
[2024-11-13 04:35] LABS: Urine Blood Negative /uL (Negative); Urine Clarity Clear (Clear); Urine Color Light-Yellow (Yellow); Urine Protein, UAD Negative (Negative); Urine Specific Gravity 1.005 (1.001-1.035); Urine Squamous Epithelial Cell None Seen /hpf (<5); Urine Urobilinogen Normal (Negative); Urine WBC < 1 /HPF (0-3); Urine pH 6.5 (5.0-9.0)
[2024-11-13] MEDS: TEMAZEPAM 15 MG CAP PO PRN (04:40)
[2024-11-13 05:04] LABS: Amphetamine Screen, Urine Neg (NEGATIVE); Barbiturate Scree,Urine Neg (NEGATIVE); Benzodiazephine Screen, Urine Neg (NEGATIVE); Cannabinoid Screen, Urine Pos (NEGATIVE); Cocaine Screen, Urine Neg (NEGATIVE); Opiate Scree,Urine Neg (NEGATIVE); Phencyclidine Screen, Urine Neg (NEGATIVE)
[2024-11-13 06:23] LABS: Basophils # (auto) 0.1 10 ^3/uL (0-0.2); Basophils % (auto) 0.8 % (0.0-2.0); Eosinophils # (auto) 0.6 10 ^3/uL (0-0.8); Eosinophils % (auto) 4.7 % (0.0-7.0); Hematocrit 43.7 % (41.0-53.0); Hemoglobin 15.1 g/dL (13.5-17.5); Lymphocytes # (auto) 2.7 10 ^3/uL (0.4-5.4); Lymphocytes % (auto) 22.2 % (10.0-50.0); Mean Corpuscular Hemoglobin 28.5 pg (28.0-32.0); Mean Corpuscular Hgb Conc. 34.5 g/dL (32.0-36.0); Mean Corpuscular Volume 82.5 fL (80.0-100.0); Monocytes % (auto) 7.8 % (0.0-12.0); Neutrophils % (auto) 64.5 % (37.0-80.0); Nucleated Red Blood Cells % 0.1 %; Platelet Count (auto) 193 10^3/uL (140-450); Red Cell Distribution Width 14.6 % (11.8-14.3); White Blood Cell 12.4 10^3/uL (4.4-10.8)
[2024-11-13 06:27] LABS: Anion Gap 6 (5-15); Calcium 9.7 mg/dL (8.7-10.4); Carbon Dioxide 24 mmol/L (20-31); Potassium 3.7 mmol/L (3.5-5.1); Sodium 139 mmol/L (136-145)
[2024-11-13 06:33] LABS: BUN/Creatinine Ratio 9.6 (10.0-20.0)
[2024-11-13 06:39] LABS: Blood Urea Nitrogen 8 mg/dL (9-23); Chloride 109 mmol/L (98-107); Glucose 127 mg/dL (74-106)
--- NOTE | 2024-11-13 06:50 | DVH ---
EXAM: XR Left Ribs, 2 Views CLINICAL INDICATION: Mechanical fall, rule out rib fractures TECHNIQUE: Frontal and oblique views of the left ribs. COMPARISON: None FINDINGS: LUNGS AND PLEURAL SPACES: Unremarkable as visualized. No consolidation. No pneumothorax. BONES/JOINTS: Unremarkable. No displaced rib fractures. OTHER FINDINGS: . . IMPRESSION: No displaced rib fractures.
--- NOTE | 2024-11-13 06:55 | DVH ---
EXAM: XR Right Elbow Complete, 3 or More Views CLINICAL INDICATION: Mechanical fall, rule out elbow fracture TECHNIQUE: Frontal, lateral and oblique views of the right elbow. COMPARISON: None FINDINGS: BONES/JOINTS: Unremarkable. No acute fracture. No dislocation. SOFT TISSUES: Unremarkable. OTHER FINDINGS: . None. IMPRESSION: No acute fracture.
[2024-11-13] MEDS: ACCU-CHEK COMFORT CURVE STRIP VI SCH (07:11)
[2024-11-13] MEDS: InsuLIN REG 1unit/0.01ml Soln (100units/ml) SC SCH (07:12)
[2024-11-13 07:30] VITALS: PULSE 82; RESP 16; O2SAT 95
[2024-11-13] MEDS: ONDANSETRON HCL 4 MG/2 ML VIAL IV PRN (08:35)
--- NOTE | 2024-11-13 09:07 | DVH ---
Carotid Duplex Date: 11/13/2024 08:09 AM Clinical History: Presyncope Comparison: US CAROTID DUPLX W COLOR DOP on DOS: 01/30/23, CAROTID DUPLX W COLOR DOP on DOS: 09/15/21 Technique: Duplex Doppler evaluation of the extracranial carotid and vertebral arteries including col or Doppler and spectral/pulsed waveform analysis was performed. Findings: RIGHT SIDE: The peak systolic velocities are 86 cm/s in the distal CCA and 64 cm/s in the proximal ICA.The ICA/CC A ratio is 0.7. The external carotid artery is patent with peak systolic velocity of 84 cm/s proximally. There is appropriate antegrade flow in the right vertebral artery. LEFT SIDE: The peak systolic velocities are 84 cm/s in the distal CCA and 88cm/s in the proximal ICA. The ICA/ CCA ratio is 1. The external carotid artery is patent with peak systolic velocity of 69 cm/s proximally. There is appropriate antegrade flow in the left vertebral artery. IMPRESSION: No hemodynamically significant stenosis noted in the right carotid system. No hemodynamically significant stenosis noted in the left carotid system. Reference: Radiology 2003; [id number]
[2024-11-13] MEDS: FATTY ACIDS PO SCH (10:00)
[2024-11-13] MEDS: OMEGA PO SCH (10:00)
[2024-11-13] MEDS ORDERED: ENOXAPARIN SOD 40 MG/0.4 ML SYRINGE SC SCH (10:00)
[2024-11-13] MEDS: LIDOCAINE 5% TOPICAL PATCH TOP SCH (10:00)
[2024-11-13] MEDS ORDERED: METOPROLOL TARTRATE 50 MG TAB PO SCH (10:00)
[2024-11-13] MEDS: NICOTINE 7MG/24HR TOPICAL PATCH TD SCH (10:01)
[2024-11-13] MEDS: ASPirin 81 mg TAB PO SCH (10:02)
[2024-11-13] MEDS: ATORVASTATIN 20 MG TAB PO SCH (10:02)
[2024-11-13] MEDS: PANTOPRAZOLE 40 MG TAB PO SCH (10:03)
[2024-11-13] MEDS: AMITRIPTYLINE HCL 25 MG TAB PO SCH (10:03)
[2024-11-13] MEDS: GEMFIBROZIL 600 MG TAB PO SCH (10:03)
[2024-11-13] MEDS: DIGOXIN 0.125 MG TAB PO SCH (10:04)
[2024-11-13] MEDS: CLOPIDOGREL BISULFATE 75 MG TAB PO SCH (10:04)
[2024-11-13] MEDS: CHOLECALCIFEROL (VITD3) 1,000UNIT=25mCg TAB PO SCH (10:04)
[2024-11-13] MEDS: ENOXAPARIN SOD 100 MG/1 ML SYRINGE SC SCH (10:05)
[2024-11-13] MEDS: NICOTINE 7MG/24HR TOPICAL PATCH TD ONE (10:06)
--- NOTE | 2024-11-13 14:12 | DVHPNRES ---
Progress Note Date Seen: Nov 13, 2024 Resident Creating Document: ERNESTO LU JACOB Has the PT tested + for MRSA If YES, has PT been informed?: No Medical Necessity Reason Pt with a Central, PICC or Fol: No Subjective Review of Systems Leonidas Pino SR a 69-year-old male patient who presents to ED with chief complaint of generalized weakness, lightheadedness, diaphoresis, and nausea post mechanical fall with no loss of consciousness with right elbow and chest trauma which happened today in the a.m.. Patient reports before episode started he was smoking cigars and he had lunch and dinner. Patient denies any shocks from cardiac device (patient has INSTRUMENT ASSEMBLER D), last interrogation was approximately one month ago which showed no major events. Patient also reports chills proximally two weeks ago. Denies head or cervical trauma, fever, palpitation, syncope, chest pain, dyspnea, vomiting, diarrhea, bleeding, recent travel, sick contacts and motor or sensory deficits. Past medical history: Hypertension, dyslipidemia, diabetes, CHF status post INSTRUMENT ASSEMBLER D (he has not been admitted for CHF exacerbation since placement of cardiac device), coronary artery disease with [place] in 2003, required a total of three PCIs with total of 5 TOMI placed, non affiliated arrhythmia (probable atrial fibrillation) on apixaban, required ablation in 2022, COPD, asthma, obstructive sleep apnea indicating CPAP but the patient is nonadherent to treatment, bulging lumbar disc symptomatic by chronic back pain and peripheral neuropathy, GERD, hepatic steatosis BPH. Surgical history: Multiple PCIs (2003 with 1 TOMI, 2007 with 2 TOMI and 2014 with 2 TOMI), 02/2023 INSTRUMENT ASSEMBLER-D, Ablation 2022, carpal tunnel surgery Family history: Mother and father had heart disease Social history: Lives in [place] with (next of kin) and offsprings. He currently smokes six cigars a day, quit cigarette smoking in 2005 ([id number] pack-year history of smoking). Ex ethanol abuse (on glass of Bacardi every done night) quit also in 2005. He occasionally drinks alcohol now. And occasionally smokes marijuana. Denies any other drug abuse Allergies: Denies Home medication: Plavix, aspirin, Eliquis, omeprazole, atorvastatin, gemfibrozil, temazepam. He does not take any diuretics. Patient seen and examined at the bedside. Patient is still complaining of light sided chest pain. Patient reports: No new complaints Changes from previous H/P or p: No Changes Objective vital signs Vital Sign Date Time Temp Pulse Resp B/P (MAP) Pulse Ox O2 Delivery O2 Flow Rate FiO2 11/13/24 13:00 98.3 82 11 114/69 (84) 94 98.3 11/13/24 07:30 Room Air* 0 21 Total Intake and Output 11/12/24 11/12/24 11/13/24 15:00 23:00 07:00 Intake Total 500 ml Balance 500 ml medications Current Medications Medications Dose Ordered Sig/Carl Route Start Time Stop Time Status Last Admin Dose Admin Docusate Sodium 100 mg BIDPRN PRN PO 11/12/24 23:45 Acetaminophen 650 mg Q6HP PRN PO 11/12/24 23:45 Ondansetron HCl 4 mg Q4HP PRN IV 11/12/24 23:45 11/13/24 08:35 4 MG Morphine Sulfate 2 mg Q4HPRN PRN IV 11/12/24 23:45 11/13/24 08:35 2 MG Nitroglycerin 0.4 mg Q5MINP PRN SL 11/12/24 23:45 Morphine Sulfate 2 mg Q30M PRN IV 11/12/24 23:45 Enoxaparin Sodium 90 mg Q12HR SC 11/13/24 10:00 11/13/24 10:05 90 MG Clopidogrel Bisulfate 75 mg DAILY PO 11/13/24 10:00 11/13/24 10:04 75 MG Digoxin 0.125 mg DAILY PO 11/13/24 10:00 11/13/24 10:04 0.125 MG Gemfibrozil 600 mg DAILY PO 11/13/24 10:00 11/13/24 10:03 600 MG Lidocaine 1 patch DAILY TOP 11/13/24 10:00 Metoprolol Tartrate 75 mg DAILY PO 11/13/24 10:00 Hold Amitriptyline HCl 100 mg DAILY PO 11/13/24 10:00 11/13/24 10:03 100 MG Atorvastatin Calcium 80 mg DAILY PO 11/13/24 10:00 11/13/24 10:02 80 MG Cholecalciferol 5,000 unit DAILY PO 11/13/24 10:00 11/13/24 10:04 5,000 UNIT Patient Own Medication 4,000 mg DAILY PO 11/13/24 10:00 Pantoprazole Sodium 40 mg DAILY PO 11/13/24 10:00 11/13/24 10:03 40 MG Temazepam 30 mg QHSP PRN PO 11/13/24 01:45 11/13/24 04:40 30 MG Diagnostic Test (Pha) 1 strip ACHS 11/13/24 07:00 11/13/24 11:34 1 STRIP Insulin Human Regular ACHS SC 11/13/24 07:00 11/13/24 11:35 3 UNITS Dextrose 50 ml UD PRN IV 11/13/24 01:30 Aspirin 81 mg DAILY PO 11/13/24 10:00 11/13/24 10:02 81 MG Nicotine 1 patch DAILY TD 11/13/24 10:00 11/13/24 10:01 1 PATCH Examination General Appearance: Alert, Oriented X3, Cooperative, No acute distress HEENT: Atraumatic, PERRLA, EOMI, Mucous membrane moist/pink Respiratory: Right-sided chest tenderness Cardiovascular: Regular rate, Normal S1, Normal S2, No murmurs, no chest wall tenderness Abdominal: Normal bowel sounds, Soft, No tenderness, No hepatospenomegaly, No masses Extremities: No clubbing, No cyanosis, No edema, Normal pulses, No tenderness/swelling Skin: No rashes, No breakdown, No significant lesion Neuro: Normal gait, Normal speech, Strength at 5/5 X4 ext, Normal tone, Sensation intact, Cranial nerves 3-12 NL, Reflexes 2+ Psych/Mental Status: Mental status NL, Mood NL laboratory and microbiology Laboratory Tests 11/13/24 05:25 Test 11/13/24 05:25 Range/Units Serum Glucose 127 H 74-106 mg/dL Labs and/or images reviewed: Labs reviewed by me, Image(s) reviewed by me Problem List/Assessment/Plan Problem List/Assessment/Plan Possible orthostatics presyncope Hypovolemia, likely due to decreased oral intake SIRS without endorgan demage Possible cardiac arrhythmia, leading to presyncope Leukocytosis likely reactive due to mechanical fall CHF status post INSTRUMENT ASSEMBLER D, no exacerbation Hypertension Dyslipidemia Diabetes Coronary artery disease with history of [place]-status post PCI (total of 5 TOMI) COPD/asthma no exacerbation Obstructive sleep apnea with indication of CPAP Non adherence Bulging disc symptomatic by back pain and peripheral neuropathy GERD Nicotine dependence Cannabinoids use disorder next Lactic acidosis Plan: EKGs shows paced rhythm, with no significant ST or T-wave changes Check echocardiogram INSTRUMENT ASSEMBLER-D interrogation performed, normal, showed recent short nonsustained VT on Monday morning at 1:00 a.m. but the patient denies any reconciliation or symptoms Rib x-rays shows no displaced rib fracture Head CT scan shows chronic scale of macrovascular disease Carotid Doppler is normal Orthostatic vitals Nicotine patch Continue home meds IV fluid DIET: Cardiac diet DVT PROPHYLAXIS: Therapeutic dose Lovenox GI PROPHYLAXIS:: Protonix CODE STATUS: Goal of care discussed for more than 18 minutes, full code DISPOSITION: Telemetry Patient's status and plan discussed with the patient. Case discussed with Dr. Torres. Plan discussed with: Patient, Other (RN) My Orders My Orders Orders - ERNESTO LU RESDIDL Procedure Category Date Status Time Orthostatic Vital ED NURSING 11/13/24 Transmitted Signs Cardiac DIET 11/13/24 Transmitted Diet-2gna,Lofat,Lochol Lunch Date of Service: Nov 13, 2024 Billing Provider: ANAYELI PINEDA MD Common Visit Codes: [id number] INP/OBS CARE(HIGH) ERNESTO LU RESDIENT Nov 13, 2024 14:12 ANAYELI PINEDA MD November 16, 2024 20:41
[2024-11-13 17:32] VITALS: BP 133/74; PULSE 89; TEMP 97.5; O2SAT 96
[2024-11-13] MEDS: EZETIMIBE 10 MG TAB PO ONE (18:47)
[2024-11-13 19:37] VITALS: BP 133/74; PULSE 89; RESP 20; TEMP 97.5; O2SAT 96
[2024-11-13 20:00] VITALS: BP 116/62; PULSE 85; RESP 20; TEMP 97.5; O2SAT 96
[2024-11-13 21:00] VITALS: BP 116/62; PULSE 85; RESP 20; TEMP 97.5; O2SAT 96
[2024-11-14] VITALS (9 sets, daily range): BP systolic 102–140; BP diastolic 63–82; PULSE 73–89; RESP 17–20; TEMP 97.2–97.9; O2SAT 94–98
[2024-11-14 07:03] LABS: Basophils # (auto) 0.1 10 ^3/uL (0-0.2); Basophils % (auto) 1.1 % (0.0-2.0); Eosinophils # (auto) 0.7 10 ^3/uL (0-0.8); Eosinophils % (auto) 7.5 % (0.0-7.0); Hematocrit 44.2 % (41.0-53.0); Hemoglobin 15.4 g/dL (13.5-17.5); Lymphocytes # (auto) 2.5 10 ^3/uL (0.4-5.4); Lymphocytes % (auto) 27.9 % (10.0-50.0); Mean Corpuscular Hemoglobin 28.8 pg (28.0-32.0); Mean Corpuscular Hgb Conc. 34.8 g/dL (32.0-36.0); Mean Corpuscular Volume 82.7 fL (80.0-100.0); Monocytes # (auto) 0.8 10 ^3/uL (0-1.3); Monocytes % (auto) 8.4 % (0.0-12.0); Neutrophils % (auto) 55.1 % (37.0-80.0); Nucleated Red Blood Cells % 0.1 %; Platelet Count (auto) 170 10^3/uL (140-450); Red Blood Cells 5.34 10^6/uL (4.5-5.90); Red Cell Distribution Width 14.6 % (11.8-14.3); White Blood Cell 9.1 10^3/uL (4.4-10.8)
[2024-11-14 07:09] LABS: Alanine Aminotransferase 19 U/L (7-40); Alkaline Phosphatase 77 U/L (46-116); Anion Gap 6 (5-15); Aspartate Aminotransferase 15 U/L (13-40); BUN/Creatinine Ratio 13.3 (10.0-20.0); Blood Urea Nitrogen 13 mg/dL (9-23); Calcium 10.1 mg/dL (8.7-10.4); Carbon Dioxide 25 mmol/L (20-31); Potassium 3.8 mmol/L (3.5-5.1); Sodium 138 mmol/L (136-145); Total Protein 6.2 g/dL (5.7-8.2)
[2024-11-14 07:10] LABS: Bilirubin, Total 0.8 mg/dL (0.2-1.0)
[2024-11-14 07:11] LABS: Chloride 107 mmol/L (98-107); Glucose 131 mg/dL (74-106)
[2024-11-14] MEDS: EZETIMIBE 10 MG TAB PO SCH (09:28)
--- NOTE | 2024-11-14 12:35 | ECG ---
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
--- NOTE | 2024-11-14 12:54 | DVHPNRES ---
Progress Note Date Seen: November 14, 2024 Resident Creating Document: ERNESTO LU JACOB Has the PT tested + for MRSA If YES, has PT been informed?: No Medical Necessity Reason Pt with a Central, PICC or Fol: No Subjective Review of Systems Patient is seen and examined at the bedside. Patient is feeling better since admission but still complained of mild dizziness Objective vital signs Vital Sign Date Time Temp Pulse Resp B/P (MAP) Pulse Ox O2 Delivery O2 Flow Rate FiO2 11/14/24 09:29 84 11/14/24 08:45 97.6 17 119/70 (86) 97 97.6 11/14/24 08:05 Room Air* 0 21 medications Current Medications Medications Dose Ordered Sig/Carl Route Start Time Stop Time Status Last Admin Dose Admin Docusate Sodium 100 mg BIDPRN PRN PO 11/12/24 23:45 Acetaminophen 650 mg Q6HP PRN PO 11/12/24 23:45 Ondansetron HCl 4 mg Q4HP PRN IV 11/12/24 23:45 11/13/24 08:35 4 MG Morphine Sulfate 2 mg Q4HPRN PRN IV 11/12/24 23:45 11/13/24 08:35 2 MG Nitroglycerin 0.4 mg Q5MINP PRN SL 11/12/24 23:45 Morphine Sulfate 2 mg Q30M PRN IV 11/12/24 23:45 Enoxaparin Sodium 90 mg Q12HR SC 11/13/24 10:00 11/14/24 09:25 90 MG Clopidogrel Bisulfate 75 mg DAILY PO 11/13/24 10:00 11/14/24 09:28 75 MG Digoxin 0.125 mg DAILY PO 11/13/24 10:00 11/14/24 09:29 0.125 MG Gemfibrozil 600 mg DAILY PO 11/13/24 10:00 11/14/24 09:30 600 MG Lidocaine 1 patch DAILY TOP 11/13/24 10:00 11/14/24 09:29 1 PATCH Metoprolol Tartrate 75 mg DAILY PO 11/13/24 10:00 Hold Amitriptyline HCl 100 mg DAILY PO 11/13/24 10:00 11/13/24 10:03 100 MG Atorvastatin Calcium 80 mg DAILY PO 11/13/24 10:00 11/14/24 09:27 80 MG Cholecalciferol 5,000 unit DAILY PO 11/13/24 10:00 11/14/24 09:26 5,000 UNIT Patient Own Medication 4,000 mg DAILY PO 11/13/24 10:00 Pantoprazole Sodium 40 mg DAILY PO 11/13/24 10:00 11/14/24 09:28 40 MG Temazepam 30 mg QHSP PRN PO 11/13/24 01:45 11/13/24 21:40 30 MG Diagnostic Test (Pha) 1 strip ACHS 11/13/24 07:00 11/14/24 11:27 1 STRIP Insulin Human Regular ACHS SC 11/13/24 07:00 11/14/24 06:09 2 UNITS Dextrose 50 ml UD PRN IV 11/13/24 01:30 Aspirin 81 mg DAILY PO 11/13/24 10:00 11/14/24 09:28 81 MG Nicotine 1 patch DAILY TD 11/13/24 10:00 11/14/24 09:26 1 PATCH EZETIMIBE 10 mg DAILY PO 11/14/24 10:00 11/14/24 09:28 10 MG Examination General Appearance: Alert, Oriented X3, Cooperative, No acute distress HEENT: Atraumatic, PERRLA, EOMI, Mucous membrane moist/pink Respiratory: Right-sided chest tenderness Cardiovascular: Regular rate, Normal S1, Normal S2, No murmurs, no chest wall tenderness Abdominal: Normal bowel sounds, Soft, No tenderness, No hepatospenomegaly, No masses Extremities: No clubbing, No cyanosis, No edema, Normal pulses, No tenderness/swelling Skin: No rashes, No breakdown, No significant lesion Neuro: Normal gait, Normal speech, Strength at 5/5 X4 ext, Normal tone, Sensation intact, Cranial nerves 3-12 NL, Reflexes 2+ Psych/Mental Status: Mental status NL, Mood NL laboratory and microbiology Laboratory Tests 11/14/24 05:41 Test 11/14/24 05:41 Range/Units Serum Glucose 131 H 74-106 mg/dL Labs and/or images reviewed: Labs reviewed by me, Image(s) reviewed by me Problem List/Assessment/Plan Problem List/Assessment/Plan Possible orthostatics presyncope Hypovolemia, likely due to decreased oral intake SIRS without endorgan demage Possible cardiac arrhythmia, leading to presyncope Leukocytosis likely reactive due to mechanical fall 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 but the patient denies any reconciliation or symptoms Rib x-rays shows no displaced rib fracture Head CT scan shows chronic scale of macrovascular disease Carotid Doppler is normal Orthostatic vitals Nicotine patch Continue home meds IV fluid 6 minutes walk test DIET: Cardiac diet DVT PROPHYLAXIS: Therapeutic dose Lovenox GI PROPHYLAXIS:: Protonix CODE STATUS: Goal of care discussed for more than 18 minutes, full code DISPOSITION: Telemetry Patient's status and plan discussed with the patient. Case discussed with Dr. Torres. Plan discussed with: Patient, Other (RN) My Orders My Orders Orders - ERNESTO LU RESDIDL Procedure Category Date Status Time Ezetimibe (Zetia) PHA 11/14/24 In Process 10:00 Orthostatic Vital ORDERS 11/14/24 Transmitted Signs 11:33 Date of Service: November 14, 2024 Billing Provider: ANAYELI PINEDA MD Common Visit Codes: [id number] INP/OBS CARE(HIGH) ERNESTO LU RESDIENT November 14, 2024 12:54 ANAYELI PINEDA MD November 16, 2024 20:43
[2024-11-15] VITALS (9 sets, daily range): BP systolic 114–143; BP diastolic 63–78; PULSE 66–97; RESP 17–20; TEMP 97.7–98.1; O2SAT 93–97
[2024-11-15 07:46] LABS: Basophils # (auto) 0.1 10 ^3/uL (0-0.2); Basophils % (auto) 1.1 % (0.0-2.0); Eosinophils # (auto) 0.7 10 ^3/uL (0-0.8); Eosinophils % (auto) 6.9 % (0.0-7.0); Hematocrit 47.1 % (41.0-53.0); Hemoglobin 15.9 g/dL (13.5-17.5); Lymphocytes # (auto) 2.8 10 ^3/uL (0.4-5.4); Lymphocytes % (auto) 27.9 % (10.0-50.0); Mean Corpuscular Hemoglobin 28.3 pg (28.0-32.0); Mean Corpuscular Hgb Conc. 33.9 g/dL (32.0-36.0); Mean Corpuscular Volume 83.7 fL (80.0-100.0); Monocytes # (auto) 0.8 10 ^3/uL (0-1.3); Monocytes % (auto) 8.3 % (0.0-12.0); Neutrophils # (auto) 5.5 10 ^3/uL (1.6-8.6); Neutrophils % (auto) 55.8 % (37.0-80.0); Nucleated Red Blood Cells % 0.1 %; Platelet Count (auto) 176 10^3/uL (140-450); Red Blood Cells 5.62 10^6/uL (4.5-5.90); Red Cell Distribution Width 14.2 % (11.8-14.3); White Blood Cell 9.9 10^3/uL (4.4-10.8)
[2024-11-15 08:08] LABS: Alanine Aminotransferase 19 U/L (7-40); Albumin 4.3 g/dL (3.2-4.8); Alkaline Phosphatase 87 U/L (46-116); Anion Gap 11 (5-15); Aspartate Aminotransferase 17 U/L (13-40); BUN/Creatinine Ratio 14.7 (10.0-20.0); Blood Urea Nitrogen 14 mg/dL (9-23); Calcium 10.3 mg/dL (8.7-10.4); Carbon Dioxide 25 mmol/L (20-31); Chloride 103 mmol/L (98-107); Glucose 105 mg/dL (74-106); Potassium 3.6 mmol/L (3.5-5.1); Sodium 139 mmol/L (136-145); Total Protein 6.6 g/dL (5.7-8.2)
[2024-11-15 08:09] LABS: Bilirubin, Total 0.9 mg/dL (0.2-1.0)
--- NOTE | 2024-11-15 14:11 | DVHSR ---
APPROVED REPORT EXAM: Two-dimensional and M-mode echocardiogram with Doppler and color Doppler. Blood Pressure: 102/61 mmHg INDICATION sob Surgery/Intervention Pacemaker: RISK FACTORS Height: 5' 9", Weight: 200 DIMENSIONS LVDd6.1 (3.8-5.7cm)LA (2D)4.1 (1.9-4.0cm)Aortic Root3.6 (2.0-3.7cm) LVDs5.2 (2.5-4.0cm)LA (MM) (1.9-4.0cm)Aortic Cusp Exc1.8 (1.5-2.0cm) EF (%) 30.0 (55-70%)Rt. Atrium4.9 (1.9-4.0cm)Asc. Aorta cm IVSd0.9 (0.7-1.1cm)RV (D) (1.8-2.4cm) PWd0.9 (0.7-1.1cm) Mitral Valve MitralMitral Stenosis E wave0.70m/sMV Mean GR.mmHg A wave0.80m/sMV Peak GR.mmHg E/A ratio0.92D MVAcm2 Aortic Valve Aortic ValveAortic Stenosis V10.50m/[place]un[place] Mean GR.3mmHg V21.20m/[place]un[place] Peak GR.6mmHg LVOT Diameter2.6 (1.8-2.4cm)Doppler AVA2.21cm2 Conclusion LAE TRAVIS EF 30-35%
--- NOTE | 2024-11-15 16:08 | DVHDSRES ---
Discharge Summary Date of Admission Resident Creating Document: ERNESTO LU RESDIENT Nov 12, 2024 at 23:36 Date of Discharge: November 15, 2024 Admitting Diagnosis Presyncope Wounds: Labs/Diagnostic Data: Laboratory Results Test 11/15/24 11:22 11/15/24 05:11 11/13/24 04:21 11/13/24 02:14 POC Glucose 128 mg/dl (70-106) White Blood Count 9.9 10^3/uL (4.4-10.8) Red Blood Count 5.62 10^6/uL (4.5-5.90) Hemoglobin 15.9 g/dL (13.5-17.5) Hematocrit 47.1 % (41.0-53.0) Mean Corpuscular Volume 83.7 fL (80.0-100.0) Mean Corpuscular Hemoglobin 28.3 pg (28.0-32.0) Mean Corpuscular Hemoglobin Concent 33.9 g/dL (32.0-36.0) Red Cell Distribution Width 14.2 % (11.8-14.3) Platelet Count 176 10^3/uL (140-450) Mean Platelet Volume 10.9 fL (6.9-10.8) Neutrophils (%) (Auto) 55.8 % (37.0-80.0) Lymphocytes (%) (Auto) 27.9 % (10.0-50.0) Monocytes (%) (Auto) 8.3 % (0.0-12.0) Eosinophils (%) (Auto) 6.9 % (0.0-7.0) Basophils (%) (Auto) 1.1 % (0.0-2.0) Neutrophils # (Auto) 5.5 10 ^3/uL (1.6-8.6) Lymphocytes # (Auto) 2.8 10 ^3/uL (0.4-5.4) Monocytes # (Auto) 0.8 10 ^3/uL (0-1.3) Eosinophils # (Auto) 0.7 10 ^3/uL (0-0.8) Basophils # (Auto) 0.1 10 ^3/uL (0-0.2) Nucleated Red Blood Cells 0.1 % Sodium Level 139 mmol/L (136-145) Potassium Level 3.6 mmol/L (3.5-5.1) Chloride Level 103 mmol/L (98-107) Carbon Dioxide Level 25 mmol/L (20-31) Anion Gap 11 (5-15) Blood Urea Nitrogen 14 mg/dL (9-23) Creatinine 0.95 mg/dL (0.700-1.30) Glomerular Filtration Rate Calc 88 mL/min (>90) BUN/Creatinine Ratio 14.7 (10.0-20.0) Serum Glucose 105 mg/dL (74-106) Calcium Level 10.3 mg/dL (8.7-10.4) Total Bilirubin 0.9 mg/dL (0.2-1.0) Aspartate Amino Transferase (AST) 17 U/L (13-40) Alanine Aminotransferase (ALT) 19 U/L (7-40) Alkaline Phosphatase 87 U/L (46-116) Total Protein 6.6 g/dL (5.7-8.2) Albumin 4.3 g/dL (3.2-4.8) Urine Color Light-yellow (Yellow) Urine Clarity Clear (Clear) Urine pH 6.5 (5.0-9.0) Urine Specific [place] 1.005 (1.001-1.035) Urine Protein Negative (Negative) Urine Ketones Negative (Negative) Urine Blood Negative /uL (Negative) Urine Nitrite Negative (Negative) Urine Bilirubin Negative (Negative) Urine Urobilinogen Normal mg/dL (Negative) Urine Leukocyte Esterase Negative /uL (Negative) Urine RBC None seen /hpf (0 - 3) Urine Microscopic WBC < 1 /HPF (0-3) Urine Squamous Epithelial Cells None seen /hpf (<5) Urine Bacteria None seen /hpf (None Seen) Urine Glucose Normal mg/dL (Normal) Urine Opiates Screen Neg (NEGATIVE) Urine Fentanyl Screen Neg (NEGATIVE) Urine Barbiturates Screen Neg (NEGATIVE) Urine Phencyclidine Screen Neg (NEGATIVE) Urine Amphetamines Screen Neg (NEGATIVE) Urine Benzodiazepines Screen Neg (NEGATIVE) Urine Cocaine Screen Neg (NEGATIVE) Urine Cannabinoids Screen Pos (NEGATIVE) Lactic Acid Level 2.0 mmol/L (0.4-2.0) Test 11/13/24 01:40 11/12/24 23:19 11/12/24 22:32 Troponin I High Sensitivity < 3 ng/L (</=54) Phosphorus Level 3.7 mg/dL (2.4-5.1) Magnesium Level 1.6 mg/dL (1.6-2.6) Direct Bilirubin 0.2 mg/dL (<0.3) Triglycerides Level 236 mg/dL (< 150) Cholesterol Level 142 mg/dL (< 200) LDL Cholesterol 65 mg/dL (< 100) HDL Cholesterol 45 mg/dL (40-59) Thyroid Stimulating Hormone (TSH) 2.29 uIU/mL (0.55-4.78) Prothrombin Time 11.3 sec (9.3-11.8) Prothrombin Time INR 1.07 (0.9-1.15) Activated Partial Thromboplast Time 26.5 SEC (24.5-34.5) Hemoglobin A1c 5.9 % A1C (<5.7) Vitamin B12 Level 714 pg/mL (211-911) Vitamin D 25-Hydroxy 49.0 ng/mL (30.0-100) Other Laboratory Tests 11/15/24 05:11 Brief Hx & Hospital Course: Leonidas Rivas SR a 69-year-old male patient who presents to ED with chief complaint of generalized weakness, lightheadedness, diaphoresis, and nausea post mechanical fall with no loss of consciousness with right elbow and chest trauma which happened today in the a.m.. Patient reports before episode started he was smoking cigars and he had lunch and dinner. Patient denies any shocks from cardiac device (patient has ROLL SLICING MACHINE TENDER D), last interrogation was approximately one month ago which showed no major events. Patient also reports chills proximally two weeks ago. Denies head or cervical trauma, fever, palpitation, syncope, chest pain, dyspnea, vomiting, diarrhea, bleeding, recent travel, sick contacts and motor or sensory deficits. Past medical history: Hypertension, dyslipidemia, diabetes, CHF status post ROLL SLICING MACHINE TENDER D (he has not been admitted for CHF exacerbation since placement of cardiac device), coronary artery disease with [place] in 2003, required a total of three PCIs with total of 5 TOMI placed, non affiliated arrhythmia (probable atrial fibrillation) on apixaban, required ablation in 2022, COPD, asthma, obstructive sleep apnea indicating CPAP but the patient is nonadherent to treatment, bulging lumbar disc symptomatic by chronic back pain and peripheral neuropathy, GERD, hepatic steatosis BPH. Surgical history: Multiple PCIs (2003 with 1 TOMI, 2007 with 2 TOMI and 2014 with 2 TOMI), 02/2023 ROLL SLICING MACHINE TENDER-D, Ablation 2022, carpal tunnel surgery Family history: Mother and father had heart disease Social history: Lives in [place] with (next of kin) and offsprings. He currently smokes six cigars a day, quit cigarette smoking in 2005 ([id number] pack-year history of smoking). Ex ethanol abuse (on glass of Bacardi every done night) quit also in 2005. He occasionally drinks alcohol now. And occasionally smokes marijuana. Denies any other drug abuse Allergies: Denies Home medication: Plavix, aspirin, Eliquis, omeprazole, atorvastatin, gemfibrozil, temazepam. He does not take any diuretics. Hospital course: Patient was admitted for evaluation of presyncope. EKG performed, showed paced rhythm, CT head showed no intracranial abnormalities. Due to low BP, the patient was given IV fluid and home medication was continued. ROLL SLICING MACHINE TENDER-D interrogation performed, normal, showed recent short nonsustained VT on Monday morning at 1:00 a.m. but the patient denies any reconciliation or symptoms. Carotid Doppler was normal. Orthostatic vital was showing, and showed no significant drop. Echocardiogram was repeated and showed EF 30-35%. On 11/16/2023, the patient was feeling better, discharge plan discussed with the patient and the patient discharged home. Next Discharge plan: Follow up with the PCP within 1 week of the discharge. Continue home meds Operations or Procedures [place] [address] Ph: [phone] DIAGNOSTIC IMAGING Diagnostic Imaging Report : [id number] Signed PATIENT: LEONIDAS RIVAS SR AACCT: [id number] UNIT: [id number] : 1955 LOC: [facility] ROOM / BED: [facility] / A AGE / SEX: 69 / M ADM STATUS: ADM IN SERVICE 2510 ORDERING PHYSICIAN: SYLVIA ALLEN RESIDENT PROCEDURE(s): ECIDC - ECHO 2D MODE CARDIAC DOP REASON: SOB ORDER NUMBER(s): [id number], ACCESSION NUMBER(s): [id number] APPROVED REPORT EXAM: Two-dimensional and M-mode echocardiogram with Doppler and color Doppler. Blood Pressure: 102/61 mmHg INDICATION sob Surgery/Intervention Pacemaker: RISK FACTORS Height: 5' 9", Weight: 200 DIMENSIONS LVDd 6.1 (3.8-5.7cm) LA (2D) 4.1 (1.9-4.0cm) Aortic Root 3.6 (2.0- 3.7cm) LVDs 5.2 (2.5-4.0cm) LA (MM) (1.9-4.0cm) Aortic Cusp Exc 1.8 (1.5- 2.0cm) EF (%) 30.0 (55-70%) Rt. Atrium 4.9 (1.9-4.0cm) Asc. Aorta cm IVSd 0.9 (0.7-1.1cm) RV (D) (1.8-2.4cm) PWd 0.9 (0.7-1.1cm) Mitral Valve Mitral Mitral Stenosis E wave 0.70m/s MV Mean GR. mmHg A wave 0.80m/s MV Peak GR. mmHg E/A ratio 0.9 2D MVA cm2 Aortic Valve Aortic Valve Aortic Stenosis V1 0.50m/s AO Mean GR. 3mmHg V2 1.20m/s AO Peak GR. 6mmHg LVOT Diameter 2.6 (1.8-2.4cm) Doppler DOV 2.21cm2 Conclusion LAE TRAVIS EF 30-35% SIGNED BY: CHRIS PANDEY MD SIGNED DATE/TIME: 11/15/24 5125 CC: Condition at Discharge: Stable Final Diagnosis/Problems List Possible orthostatics presyncope Hypovolemia, likely due to decreased oral intake SIRS without endorgan demage Possible cardiac arrhythmia, leading to presyncope Leukocytosis likely reactive due to mechanical fall CHF status post ROLL SLICING MACHINE TENDER D, no exacerbation Hypertension Dyslipidemia Diabetes Coronary artery disease with history of [place]-status post PCI (total of 5 TOMI) COPD/asthma no exacerbation Obstructive sleep apnea with indication of CPAP Non adherence Bulging disc symptomatic by back pain and peripheral neuropathy GERD Nicotine dependence Cannabinoids use disorder next Lactic acidosis Discharge Disposition: Home Discharge Instruct/Medications Diet: Consistent carbohydrate Activity: No Restrictions, As Tolerated Follow Up/Referral: Follow up with the PCP within 1 week of the discharge. Medications: Continue home meds. Discharge Statement: "Patient was advised to return to the ER or call 911 if any headaches, dizziness, shortness of breath, chest pain, abdominal pain, bleeding, fevers, or worsening of medical condition. Patient was counseled about treatment plan, medications, possible side effects, patientverbalized understanding. All questions were answered to the best of my ability. This discharge took greater then 30 minutes in planning, reviewing documentation, counseling the patient, and discussing with other team members." ASSESSMENT ASSESSMENT Assessment Presyncope ERNESTO LU [facility] November 15, 2024 16:08
== END 2024-11-15 17:00 | disposition home or self-care (01) | DRG 309 ==
LOC: ER 21:05 → EDBD 21:05 → OVERFLOW 23:36 → TELE-WESTW 11-13 17:10
PROVIDERS: ADMIT Internal Medicine; ATTEND Emergency Medicine
DX: I49.9 Cardiac arrhythmia, unspecified (principal); E87.20 Acidosis, unspecified; R65.10 Systemic inflammatory response syndrome (SIRS) of non-infectious origin without acute organ dysfunction; J44.9 Chronic obstructive pulmonary disease, unspecified; K21.9 Gastro-esophageal reflux disease without esophagitis; E86.1 Hypovolemia; I25.10 Atherosclerotic heart disease of native coronary artery without angina pectoris; F17.210 Nicotine dependence, cigarettes, uncomplicated; E78.5 Hyperlipidemia, unspecified; G47.33 Obstructive sleep apnea (adult) (pediatric); E11.65 Type 2 diabetes mellitus with hyperglycemia; E11.42 Type 2 diabetes mellitus with diabetic polyneuropathy; K76.0 Fatty (change of) liver, not elsewhere classified; N40.0 Benign prostatic hyperplasia without lower urinary tract symptoms; G89.29 Other chronic pain; M54.9 Dorsalgia, unspecified; I11.0 Hypertensive heart disease with heart failure; I50.9 Heart failure, unspecified; F12.90 Cannabis use, unspecified, uncomplicated; D72.829 Elevated white blood cell count, unspecified; Z79.01 Long term (current) use of anticoagulants; Z79.1 Long term (current) use of non-steroidal anti-inflammatories (NSAID); Z79.899 Other long term (current) drug therapy; Z79.84 Long term (current) use of oral hypoglycemic drugs; Z82.49 Family history of ischemic heart disease and other diseases of the circulatory system; I25.2 Old myocardial infarction
CPT/HCPCS: 36415; 70450; 71045; 71101; 73070; 80048; 80053; 80061; 80076; 80307; 81001; 82306; 82607; 82962; 83036; 83605; 83735; 84100; 84443; 84484; 85025; 85610; 85730; 93005; 93306; 93886; 99291; G0378; J1815; J2405

== ENCOUNTER 2025-06-05 09:48 | Outpatient (CLI) | payer MEDICARE, MEDICAID | END 2025-06-05 17:00 | disposition home or self-care (01) | LOC: Rad HDHVI 09:48 | PROVIDERS: ATTEND Internal Medicine Cardiovascular Disease | DX: I50.23 Acute on chronic systolic (congestive) heart failure (principal); I25.5 Ischemic cardiomyopathy | CPT/HCPCS: 93306 ==